=== PATIENT | male | born 1945 | race Caucasian/White ===

== ENCOUNTER 2021-03-09 04:29 | Inpatient (IN) | payer MEDICARE, OTHER ==
[~2021-03-09] VITALS: Ht 172.7 cm; Wt 66.0 kg
[2021-03-09 14:01] VITALS: BP 127/76
[2021-03-09] MEDS ORDERED: ACETAMINOPHEN 325 MG TABLET PO PRN (14:30)
[2021-03-09] MEDS ORDERED: METHYL SALICYLATE/MENTHOL TOPICAL OINTMENT 57GM TUBE. TP PRN (14:30)
[2021-03-09] MEDS ORDERED: MAG HYDROX/AL HYDROX/SIMETH 30 ML ORAL.SUSP PO PRN (14:30)
[2021-03-09] MEDS ORDERED: MAGNESIUM HYDROXIDE 2,400 MG/30 ML ORAL.SUSP. PO PRN (14:30)
[2021-03-09] MEDS ORDERED: LANS15CA78 PO (14:54)
[2021-03-09] MEDS ORDERED: FOLI0.8T5 PO (14:54)
[2021-03-09] MEDS ORDERED: BACI1PAC4 TP (14:54)
[2021-03-09] MEDS ORDERED: OLAN5TAB7 PO (14:54)
[2021-03-09] MEDS ORDERED: CALC500T31 PO (14:54)
[2021-03-09] MEDS ORDERED: M-171CAP PO (14:54)
[2021-03-09] MEDS ORDERED: FERR325T14 PO (14:54)
[2021-03-09] MEDS ORDERED: RISP1TAB88 PO (14:54)
[2021-03-09] MEDS ORDERED: ESCITALOPRAM OXA5 MG PO (14:54)
[2021-03-09] MEDS ORDERED: SENN1TAB99 PO (14:54)
[2021-03-09] MEDS ORDERED: THIA100T57 PO (14:54)
[2021-03-09 15:33] LABS: BASO # 0.1 x10^3/uL (0.0-0.2); BASO % 1 % (0-3); EOS # 0.1 x10^3/uL (0.0-0.7); EOS % 1 % (0-3); HEMATOCRIT 37.2 % (39.0-53.0); HEMOGLOBIN 11.4 g/dL (13.0-17.5); LYMPH # 1.1 x10^3/uL (1.0-4.8); LYMPH % 13 % (24-48); MEAN CORPUSCULAR HEMOGLOBIN 24 pg (25-35); MEAN CORPUSCULAR HGB CONC 31 g/dL (31-37); MEAN CORPUSCULAR VOLUME 77 fL (79-100); MONO # 0.5 x10^3/uL (0.0-1.1); MONO % 6 % (0-9); NEUT # 7.1 x10^3uL (1.8-7.7); NEUT % 79 % (31-73); PLATELET COUNT 377 x10^3/uL (140-400); RED BLOOD COUNT 4.82 x10^6/uL (4.30-5.70); RED CELL DISTRIBUTION WIDTH 34.3 % (11.5-14.5)
[2021-03-09 15:51] LABS: % LYMPHS 19 % (24-48); % MONOS 4 % (0-10); % SEGS 77 % (35-66); ANISOCYTOSIS MARKED; MICROCYTOSIS SLIGHT; PLT ESTIMATE ADEQUATE (ADEQUATE)
[2021-03-09 15:52] LABS: ALBUMIN 3.4 g/dL (3.4-5.0); ALBUMIN/GLOBULIN RATIO 0.8 (1.0-1.7); CALCIUM 9.5 mg/dL (8.5-10.1); CREATININE 1.1 mg/dL (0.7-1.3); TOTAL PROTEIN 7.5 g/dL (6.4-8.2)
[2021-03-09 15:53] VITALS: BP 130/86
[2021-03-09 15:53] LABS: GFR 64.9; MAGNESIUM 2.3 mg/dL (1.8-2.4); POTASSIUM 4.2 mmol/L (3.5-5.1); TOTAL BILIRUBIN 0.2 mg/dL (0.2-1.0)
--- NOTE | 2021-03-09 17:58 | EKG ---
[address] [address] Test Date: 2021-03-09 Test Time: 17:53:54 Pat Name: KAVITA ROCHA Department: Room: [address] [place] [address] Gender: M [employer]er [employer]: : 1945 Requested By: DENZEL ZAYAS Order Number: [id number] Reading MD: Measurements Intervals [place] Rate: 85 P: 62 DC: 138 QRS: -26 QRSD: 90 T: 64 QT: 368 QTc: 438 Interpretive Statements SINUS RHYTHM ATRIAL PREMATURE COMPLEX(ES) LEFTWARD AXIS R-S TRANSITION ZONE IN V LEADS DISPLACED TO THE RIGHT QRS(T) CONTOUR ABNORMALITY CONSIDER ANTEROLATERAL MYOCARDIAL DAMAGE POSSIBLY ABNORMAL ECG RI6.01 No previous ECG available for comparison
[2021-03-09] MEDS ORDERED: NETTLE PO SCH (21:00)
[2021-03-09] MEDS ORDERED: risperiDONE 1 MG TABLET. PO SCH (21:00)
[2021-03-09] MEDS ORDERED: [UNRECOGNIZED DRUG - OTHER] PO SCH (21:00)
[2021-03-09] MEDS: CALCIUM CARBONATE 500 MG TABLET PO SCH (21:31)
[2021-03-09] MEDS: BACITRACIN ZINC TOPICAL OINT PACKET. TP SCH (21:32)
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
[2021-03-10 05:53] VITALS: BP 123/74
[2021-03-10] MEDS: PANTOPRAZOLE 40 MG TABLET. PO SCH (06:13)
[2021-03-10] MEDS ORDERED: CITALOPRAM 10 MG TABLET. PO SCH (09:00)
[2021-03-10] MEDS: BACITRACIN ZINC TOPICAL OINT PACKET. TP SCH ×2 (09:00→21:18)
[2021-03-10] MEDS: FOLIC ACID 1 MG TABLET PO SCH (09:03)
[2021-03-10] MEDS: THIAMINE 100 MG TABLET. PO SCH (09:03)
[2021-03-10] MEDS: FERROUS SULFATE 325 MG TABLET. PO SCH (09:04)
[2021-03-10] MEDS: NICOTINE 21MG PATCH. TD SCH (09:04)
[2021-03-10] MEDS: SENNOSIDES/DOCUSATE 8.6/50MG TABLET. PO SCH (09:04)
[2021-03-10] MEDS: CALCIUM CARBONATE 500 MG TABLET PO SCH ×2 (09:04→21:15)
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
[2021-03-10 14:15] LABS: THYROXINE 6.4 ug/dL (4.5-12.0)
[2021-03-10 16:36] VITALS: BP 128/74
[2021-03-10 18:37] LABS: THYROID STIM HORMONE (TSH) 3.416 uIU/mL (0.358-3.740)
[2021-03-10] MEDS: risperiDONE 0.5 MG TABLET. PO SCH (21:18)
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
--- NOTE | 2021-03-10 22:04 | PDOC ---
Exam Note: Roni Note: Please also refer to the separate dictated note~for this date of service dictated separately.~Patient seen individually. Discussed the patient with Nursing staff reviewed the chart.~Reviewed interim history and current functioning. Reviewed vital signs,~Labs/ Radiology~and current medications noted below. Continue current treatment with the changes noted in the dictated addendum note Assessment: Vital Signs/I&O: Vital Signs Date Time Temp Pulse Resp B/P (MAP) Pulse Ox O2 Delivery O2 Flow Rate FiO2 03/10/21 16:36 97.8 95 18 128/74 (92) 98 Room Air I & O 03/09/21 03/09/21 03/10/21 15:00 23:00 07:00 Intake Total 600 ml Balance 600 ml Labs: Laboratory Tests Test 03/10/21 06:10 D-Dimer (Emma) 1.38 mg/L (0.00-0.50) H Vitamin B12 Level 435 pg/mL (247-911) 25-Hydroxy Vitamin D Total 42.6 ng/mL (30-100) Thyroxine (T4) 6.4 ug/dL (4.5-12.0) Total Triiodothyronine (TT3) 109 ng/dL (71-180) Treponema pallidum Antibody Nonreactive (Nonreactive) Current Medications: Meds: Current Medications Medications (Trade) Dose Ordered Sig/Nela Route PRN Reason Start Time Stop Time Status Last Admin Dose Admin Nicotine (Nicoderm Cq 21mg Patch) 1 patch DAILY TD 03/10/21 09:00 03/10/21 09:04 Ferrous Sulfate (Feosol) 325 mg DAILY PO 03/10/21 09:00 03/10/21 09:04 Senna/Docusate Sodium (Senna Plus) 2 tab DAILY PO 03/10/21 09:00 03/10/21 09:04 Citalopram Hydrobromide (CeleXA) 10 mg DAILY PO 03/10/21 09:00 03/10/21 16:19 DC 03/10/21 09:04 Folic Acid (Folic Acid) 1 mg DAILY PO 03/10/21 09:00 03/10/21 09:03 Pantoprazole Sodium (Protonix) 40 mg DAILY06 PO 03/10/21 06:00 03/10/21 06:13 Thiamine HCl (Vitamin B-1) 100 mg DAILY PO 03/10/21 09:00 03/10/21 09:03 Risperidone (RisperDAL) 0.5 mg QHS PO 03/10/21 21:00 03/10/21 21:18 I have reviewed the current psychotropics carefully including drug interactions. Risk benefit ratio favors no change other than as noted in my dictated progress note. Diagnosis: Problems: (1) Major neurocognitive disorder (2) Dementia in Alzheimer's disease with delusions (3) Dementia in Alzheimer's disease with depression (4) Dementia of the Alzheimer's type with early onset with behavioral disturbance (5) Dementia, vascular, with delusions (6) Dementia, vascular, with depression (7) Anxiety disorder, unspecified (8) Impulse control disorder, unspecified DENZEL ZAYAS MD Mar 10, 2021 22:04
[2021-03-10 23:07] LABS: HEMOGLOBIN A1C 5.5 % (4.8-5.6)
[2021-03-11] MEDS: PANTOPRAZOLE 40 MG TABLET. PO SCH (05:59)
[2021-03-11 06:12] VITALS: BP 128/77
[2021-03-11 06:57] LABS: BILIRUBIN,URINE NEG (NEG); CLARITY,URINE CLEAR; COLOR,URINE STRAW; GLUCOSE,URINE NEG (NEG); NITRITE,URINE NEG (NEG); UROBILINOGEN,URINE 0.2 mg/dL (0.2 mg/dL)
[2021-03-11 07:00] LABS: BACTERIA,URINE FEW /HPF (0-FEW); RBC,URINE 0 /HPF (0-2); SQUAMOUS EPITHELIAL CELL,UR FEW /LPF; WBC,URINE 0 /HPF (0-4)
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
--- NOTE | 2021-03-11 07:42 | PDOC ---
Exam Note: Roni Note: This is a late entry for DOS 03/09/2021. Please also refer to the separate dictated note~for this date of service dictated separately.~Patient seen individually. Discussed the patient with Nursing staff reviewed the chart.~Reviewed interim history and current functioning. Reviewed vital signs,~Labs/ Radiology~and current medications noted below. Continue current treatment with the changes noted in the dictated addendum note Assessment: Vital Signs/I&O: Vital Signs Date Time Temp Pulse Resp B/P (MAP) Pulse Ox O2 Delivery O2 Flow Rate FiO2 03/11/21 06:12 96.4 71 17 128/77 (94) 95 Room Air I & O 03/10/21 03/10/21 03/11/21 15:00 23:00 07:00 Intake Total 360 ml 960 ml Balance 360 ml 960 ml Labs: Laboratory Tests Test 03/11/21 06:00 Urine Collection Type Unknown Urine Color Straw Urine Clarity Clear Urine pH 7.0 Urine Specific [place] 1.020 Urine Protein Neg (NEG-TRACE) Urine Glucose (UA) Neg mg/dL (NEG) Urine Ketones (Stick) Neg mg/dL (NEG) Urine Blood Neg (NEG) Urine Nitrite Neg (NEG) Urine Bilirubin Neg (NEG) Urine Urobilinogen Dipstick 0.2 mg/dL (0.2 mg/dL) Urine Leukocyte Esterase Neg (NEG) Urine RBC 0 /HPF (0-2) Urine WBC 0 /HPF (0-4) Urine Squamous Epithelial Cells Few /LPF Urine Transitional Epithelial Cells Few /LPF Urine Renal Epithelial Cells Few /LPF Urine Bacteria Few /HPF (0-FEW) Urine Mucus Slight /LPF Current Medications: Meds: Current Medications Medications (Trade) Dose Ordered Sig/Nela Route PRN Reason Start Time Stop Time Status Last Admin Dose Admin Nicotine (Nicoderm Cq 21mg Patch) 1 patch DAILY TD 03/10/21 09:00 03/10/21 09:04 Ferrous Sulfate (Feosol) 325 mg DAILY PO 03/10/21 09:00 03/10/21 09:04 Senna/Docusate Sodium (Senna Plus) 2 tab DAILY PO 03/10/21 09:00 03/10/21 09:04 Citalopram Hydrobromide (CeleXA) 10 mg DAILY PO 03/10/21 09:00 03/10/21 16:19 DC 03/10/21 09:04 Folic Acid (Folic Acid) 1 mg DAILY PO 03/10/21 09:00 03/10/21 09:03 Thiamine HCl (Vitamin B-1) 100 mg DAILY PO 03/10/21 09:00 03/10/21 09:03 Risperidone (RisperDAL) 0.5 mg QHS PO 03/10/21 21:00 03/10/21 21:18 I have reviewed the current psychotropics carefully including drug interactions. Risk benefit ratio favors no change other than as noted in my dictated progress note. Diagnosis: Problems: (1) Impulse control disorder, unspecified (2) Anxiety disorder, unspecified (3) Dementia, vascular, with depression (4) Dementia, vascular, with delusions (5) Dementia in Alzheimer's disease with depression (6) Dementia in Alzheimer's disease with delusions (7) Dementia of the Alzheimer's type with early onset with behavioral disturbance (8) Major neurocognitive disorder DENZEL ZAYAS MD Mar 11, 2021 07:42
[2021-03-11] MEDS: THIAMINE 100 MG TABLET. PO SCH (08:17)
[2021-03-11] MEDS: SENNOSIDES/DOCUSATE 8.6/50MG TABLET. PO SCH (08:17)
[2021-03-11] MEDS: FOLIC ACID 1 MG TABLET PO SCH (08:17)
[2021-03-11] MEDS: DIVALPROEX 125 MG CAP.SPRINK PO SCH ×2 (08:17→17:22)
[2021-03-11] MEDS: CITALOPRAM 20 MG TABLET. PO SCH (08:17)
[2021-03-11] MEDS: CALCIUM CARBONATE 500 MG TABLET PO SCH ×2 (08:18→20:52)
[2021-03-11] MEDS: BACITRACIN ZINC TOPICAL OINT PACKET. TP SCH ×2 (08:18→20:48)
[2021-03-11] MEDS: NICOTINE 21MG PATCH. TD SCH (08:18)
[2021-03-11] MEDS: FERROUS SULFATE 325 MG TABLET. PO SCH (08:18)
[2021-03-11 16:22] VITALS: BP 107/56
[2021-03-11] MEDS: risperiDONE 0.5 MG TABLET. PO SCH (20:52)
--- NOTE | 2021-03-11 23:24 | PDOC ---
Exam Note: Roni Note: Please also refer to the separate dictated note~for this date of service dictated separately.~Patient seen individually. Discussed the patient with Nursing staff reviewed the chart.~Reviewed interim history and current functioning. Reviewed vital signs,~Labs/ Radiology~and current medications noted below. Continue current treatment with the changes noted in the dictated addendum note Assessment: Vital Signs/I&O: Vital Signs Date Time Temp Pulse Resp B/P (MAP) Pulse Ox O2 Delivery O2 Flow Rate FiO2 03/11/21 16:22 97.8 76 16 107/56 (73) 94 03/11/21 06:12 Room Air I & O 03/10/21 03/10/21 03/11/21 15:00 23:00 07:00 Intake Total 360 ml 960 ml Balance 360 ml 960 ml Labs: Laboratory Tests Test 03/11/21 06:00 Urine Collection Type Unknown Urine Color Straw Urine Clarity Clear Urine pH 7.0 Urine Specific [place] 1.020 Urine Protein Neg (NEG-TRACE) Urine Glucose (UA) Neg mg/dL (NEG) Urine Ketones (Stick) Neg mg/dL (NEG) Urine Blood Neg (NEG) Urine Nitrite Neg (NEG) Urine Bilirubin Neg (NEG) Urine Urobilinogen Dipstick 0.2 mg/dL (0.2 mg/dL) Urine Leukocyte Esterase Neg (NEG) Urine RBC 0 /HPF (0-2) Urine WBC 0 /HPF (0-4) Urine Squamous Epithelial Cells Few /LPF Urine Transitional Epithelial Cells Few /LPF Urine Renal Epithelial Cells Few /LPF Urine Bacteria Few /HPF (0-FEW) Urine Mucus Slight /LPF Current Medications: Meds: Laboratory Tests Test 03/11/21 06:00 Urine Collection Type Unknown Urine Color Straw Urine Clarity Clear Urine pH 7.0 Urine Specific [place] 1.020 Urine Protein Neg Urine Glucose (UA) Neg mg/dL Urine Ketones (Stick) Neg mg/dL Urine Blood Neg Urine Nitrite Neg Urine Bilirubin Neg Urine Urobilinogen Dipstick 0.2 mg/dL Urine Leukocyte Esterase Neg Urine RBC 0 /HPF Urine WBC 0 /HPF Urine Squamous Epithelial Cells Few /LPF Urine Transitional Epithelial Cells Few /LPF Urine Renal Epithelial Cells Few /LPF Urine Bacteria Few /HPF Urine Mucus Slight /LPF Current Medications Medications (Trade) Dose Ordered Sig/Nela Route PRN Reason Start Time Stop Time Status Last Admin Dose Admin Acetaminophen (Tylenol) 650 mg PRN Q6HRS PRN PO MILD PAIN / TEMP > 100.3'F 03/09/21 14:30 Multi-Ingredient Ointment (Analgesic [place]) 1 catracho PRN QID PRN TP MUSCLE PAIN 03/09/21 14:30 Al Hydroxide/Mg Hydroxide (Mylanta Plus Xs) 15 ml PRN AFTMEALHC PRN PO DYSPEPSIA 03/09/21 14:30 Magnesium Hydroxide (Milk Of Magnesia) 2,400 mg PRN QHS PRN PO CONSTIPATION 03/09/21 14:30 Nicotine (Nicoderm Cq 21mg Patch) 1 patch DAILY TD 03/10/21 09:00 03/11/21 08:18 Calcium Carbonate/ Glycine (Oscal) 500 mg BID PO 03/09/21 21:00 03/11/21 20:52 Ferrous Sulfate (Feosol) 325 mg DAILY PO 03/10/21 09:00 03/11/21 08:18 Olanzapine (ZyPREXA ZYDIS) 5 mg PRN BID PRN PO ANXIETY / AGITATION 03/09/21 14:45 03/10/21 18:22 Risperidone (RisperDAL) 1 mg QHS PO 03/09/21 21:00 03/10/21 16:19 DC 03/09/21 21:31 Senna/Docusate Sodium (Senna Plus) 2 tab DAILY PO 03/10/21 09:00 03/11/21 08:17 Bacitracin (Bacitracin Topical Pkt) 1 pkt BID TP 03/09/21 21:00 03/10/21 21:18 Citalopram Hydrobromide (CeleXA) 10 mg DAILY PO 03/10/21 09:00 03/10/21 16:19 DC 03/10/21 09:04 Folic Acid (Folic Acid) 1 mg DAILY PO 03/10/21 09:00 03/11/21 08:17 Pantoprazole Sodium (Protonix) 40 mg DAILY06 PO 03/10/21 06:00 03/11/21 05:59 Non-Formulary Medication (M-17/Nettle/ Pumpk/Saw Palmet (Prostate Therapy Softgel)) 1 each BID PO 03/09/21 21:00 03/09/21 15:03 DC Thiamine HCl (Vitamin B-1) 100 mg DAILY PO 03/10/21 09:00 03/11/21 08:17 Citalopram Hydrobromide (CeleXA) 20 mg DAILY PO 03/11/21 09:00 03/11/21 08:17 Risperidone (RisperDAL) 0.5 mg QHS PO 03/10/21 21:00 03/11/21 20:52 Divalproex Sodium (Depakote Sprinkles) 125 mg 0900,1700 PO 03/11/21 09:00 03/11/21 17:22 Current Medications Medications (Trade) Dose Ordered Sig/Nela Route PRN Reason Start Time Stop Time Status Last Admin Dose Admin Citalopram Hydrobromide (CeleXA) 20 mg DAILY PO 03/11/21 09:00 03/11/21 08:17 Divalproex Sodium (Depakote Sprinkles) 125 mg 0900,1700 PO 03/11/21 09:00 03/11/21 17:22 I have reviewed the current psychotropics carefully including drug interactions. Risk benefit ratio favors no change other than as noted in my dictated progress note. Diagnosis: Problems: (1) Impulse control disorder, unspecified (2) Anxiety disorder, unspecified (3) Dementia, vascular, with depression (4) Dementia, vascular, with delusions (5) Dementia in Alzheimer's disease with depression (6) Dementia in Alzheimer's disease with delusions (7) Dementia of the Alzheimer's type with early onset with behavioral disturbance (8) Major neurocognitive disorder DENZEL ZAYAS MD Mar 11, 2021 23:24
[2021-03-12] MEDS: PANTOPRAZOLE 40 MG TABLET. PO SCH (06:18)
[2021-03-12 06:48] VITALS: BP 112/67
[2021-03-12] MEDS: CITALOPRAM 20 MG TABLET. PO SCH (08:24)
[2021-03-12] MEDS: DIVALPROEX 125 MG CAP.SPRINK PO SCH ×2 (08:24→17:29)
[2021-03-12] MEDS: CALCIUM CARBONATE 500 MG TABLET PO SCH ×2 (08:25→20:13)
[2021-03-12] MEDS: FERROUS SULFATE 325 MG TABLET. PO SCH (08:25)
[2021-03-12] MEDS: THIAMINE 100 MG TABLET. PO SCH (08:25)
[2021-03-12] MEDS: FOLIC ACID 1 MG TABLET PO SCH (08:25)
[2021-03-12] MEDS: SENNOSIDES/DOCUSATE 8.6/50MG TABLET. PO SCH (08:25)
[2021-03-12] MEDS: BACITRACIN ZINC TOPICAL OINT PACKET. TP SCH ×2 (08:26→20:20)
[2021-03-12] MEDS: NICOTINE 21MG PATCH. TD SCH (08:26)
[2021-03-12 15:56] VITALS: BP 119/61
[2021-03-12] MEDS: risperiDONE 0.5 MG TABLET. PO SCH (20:13)
[2021-03-12] MEDS ORDERED: BACITRACIN ZINC TOPICAL OINT PACKET. TP PRN (20:30)
[2021-03-13] MEDS: PANTOPRAZOLE 40 MG TABLET. PO SCH (05:20)
[2021-03-13 06:06] VITALS: BP 130/79
[2021-03-13] MEDS: CALCIUM CARBONATE 500 MG TABLET PO SCH ×2 (09:12→20:05)
[2021-03-13] MEDS: NICOTINE 21MG PATCH. TD SCH (09:12)
[2021-03-13] MEDS: FERROUS SULFATE 325 MG TABLET. PO SCH (09:12)
[2021-03-13] MEDS: DIVALPROEX 125 MG CAP.SPRINK PO SCH ×2 (09:12→17:21)
[2021-03-13] MEDS: FOLIC ACID 1 MG TABLET PO SCH (09:12)
[2021-03-13] MEDS: SENNOSIDES/DOCUSATE 8.6/50MG TABLET. PO SCH (09:12)
[2021-03-13] MEDS: THIAMINE 100 MG TABLET. PO SCH (09:12)
[2021-03-13] MEDS: CITALOPRAM 20 MG TABLET. PO SCH (09:12)
--- NOTE | 2021-03-13 09:28 | PDOC ---
Exam Note: Roni Note: This note is a late entry for 03/11/2021 covers elements not covered in my initial note. Subjective: The patient was seen on telehealth rounds in the evening of 03/11/2021 with the nursing staff taking the telehealth camera to each patient, which was on a secure portal, discussed and reviewed the chart with Grady DUGAN. The patient slept 7 hours previous night. The patient has significant sundowning which was evident last evening. Received Zyprexa at 6.30 p.m. He is exit seeking, agitated, quite significant mood lability was evident. Review of Systems: No CV, , pulmonary, eye system symptoms on review. Mental Status Exam: The patient is awake, alert, oriented. Speech coherent. A bstraction fair. Computation impaired. Language function intact, somewhat suspicious, distractible. Attention span short. Mood and affect withdrawn. No suicidal or homicidal ideation. Laboratory Data: Reviewed. Impression: Major neurocognitive disorder, Alzheimer vascular with depression, delusions, behavioral disturbance. Impulse control disorder. Anxiety disorder unspecified. Plan: Start Depakote Sprinkle 125 mg 9 a.m. and 5 p.m. Check CBC, CMP, valproic acid level in 3 days. Rest unchanged. Assessment: Vital Signs/I&O: Vital Signs Date Time Temp Pulse Resp B/P (MAP) Pulse Ox O2 Delivery O2 Flow Rate FiO2 03/13/21 06:06 98.3 68 16 130/79 (96) 96 03/12/21 15:56 Room Air I & O 03/12/21 03/12/21 03/13/21 15:00 23:00 07:00 Intake Total 720 ml 340 ml Balance 720 ml 340 ml Current Medications: Meds: Current Medications Medications (Trade) Dose Ordered Sig/Nela Route PRN Reason Start Time Stop Time Status Last Admin Dose Admin Acetaminophen (Tylenol) 650 mg PRN Q6HRS PRN PO MILD PAIN / TEMP > 100.3'F 03/09/21 14:30 03/12/21 08:25 Multi-Ingredient Ointment (Analgesic [place]) 1 catracho PRN QID PRN TP MUSCLE PAIN 03/09/21 14:30 Al Hydroxide/Mg Hydroxide (Mylanta Plus Xs) 15 ml PRN AFTMEALHC PRN PO DYSPEPSIA 03/09/21 14:30 Magnesium Hydroxide (Milk Of Magnesia) 2,400 mg PRN QHS PRN PO CONSTIPATION 03/09/21 14:30 Nicotine (Nicoderm Cq 21mg Patch) 1 patch DAILY TD 03/10/21 09:00 03/13/21 09:12 Calcium Carbonate/ Glycine (Oscal) 500 mg BID PO 03/09/21 21:00 03/13/21 09:12 Ferrous Sulfate (Feosol) 325 mg DAILY PO 03/10/21 09:00 03/13/21 09:12 Olanzapine (ZyPREXA ZYDIS) 5 mg PRN BID PRN PO ANXIETY / AGITATION 03/09/21 14:45 03/12/21 08:25 Risperidone (RisperDAL) 1 mg QHS PO 03/09/21 21:00 03/10/21 16:19 DC 03/09/21 21:31 Senna/Docusate Sodium (Senna Plus) 2 tab DAILY PO 03/10/21 09:00 03/13/21 09:12 Bacitracin (Bacitracin Topical Pkt) 1 pkt BID TP 03/09/21 21:00 03/12/21 20:20 DC 03/12/21 08:26 Citalopram Hydrobromide (CeleXA) 10 mg DAILY PO 03/10/21 09:00 03/10/21 16:19 DC 03/10/21 09:04 Folic Acid (Folic Acid) 1 mg DAILY PO 03/10/21 09:00 03/13/21 09:12 Pantoprazole Sodium (Protonix) 40 mg DAILY06 PO 03/10/21 06:00 03/13/21 05:20 Non-Formulary Medication (M-17/Nettle/ Pumpk/Saw [place] (Prostate Therapy Softgel)) 1 each BID PO 03/09/21 21:00 03/09/21 15:03 DC Thiamine HCl (Vitamin B-1) 100 mg DAILY PO 03/10/21 09:00 03/13/21 09:12 Citalopram Hydrobromide (CeleXA) 20 mg DAILY PO 03/11/21 09:00 03/13/21 09:12 Risperidone (RisperDAL) 0.5 mg QHS PO 03/10/21 21:00 03/12/21 20:13 Divalproex Sodium (Depakote Sprinkles) 125 mg 0900,1700 PO 03/11/21 09:00 03/13/21 09:12 Bacitracin (Bacitracin Topical Pkt) 1 pkt PRN BID PRN TP RASH 03/12/21 20:30 I have reviewed the current psychotropics carefully including drug interactions. Risk benefit ratio favors no change other than as noted in my dictated progress note. Diagnosis: Problems: (1) Impulse control disorder, unspecified (2) Anxiety disorder, unspecified (3) Dementia, vascular, with depression (4) Dementia, vascular, with delusions (5) Dementia in Alzheimer's disease with depression (6) Dementia in Alzheimer's disease with delusions (7) Dementia of the Alzheimer's type with early onset with behavioral disturbance (8) Major neurocognitive disorder DENZEL ZAYAS MD Mar 13, 2021 09:28
[2021-03-13 15:46] VITALS: BP 112/67
[2021-03-13] MEDS: risperiDONE 0.5 MG TABLET. PO SCH (20:05)
--- NOTE | 2021-03-13 22:15 | PDOC ---
Exam Note: Roni Note: Please also refer to the separate dictated note~for this date of service dictated separately.~Patient seen individually. Discussed the patient with Nursing staff reviewed the chart.~Reviewed interim history and current functioning. Reviewed vital signs,~Labs/ Radiology~and current medications noted below. Continue current treatment with the changes noted in the dictated addendum note Assessment: Vital Signs/I&O: Vital Signs Date Time Temp Pulse Resp B/P (MAP) Pulse Ox O2 Delivery O2 Flow Rate FiO2 03/13/21 15:46 97.4 80 16 112/67 (82) 97 03/12/21 15:56 Room Air I & O 03/12/21 03/12/21 03/13/21 15:00 23:00 07:00 Intake Total 720 ml 340 ml Balance 720 ml 340 ml Current Medications: Meds: Current Medications Medications (Trade) Dose Ordered Sig/Nela Route PRN Reason Start Time Stop Time Status Last Admin Dose Admin Acetaminophen (Tylenol) 650 mg PRN Q6HRS PRN PO MILD PAIN / TEMP > 100.3'F 03/09/21 14:30 03/12/21 08:25 Multi-Ingredient Ointment (Analgesic [place]) 1 catracho PRN QID PRN TP MUSCLE PAIN 03/09/21 14:30 Al Hydroxide/Mg Hydroxide (Mylanta Plus Xs) 15 ml PRN AFTMEALHC PRN PO DYSPEPSIA 03/09/21 14:30 Magnesium Hydroxide (Milk Of Magnesia) 2,400 mg PRN QHS PRN PO CONSTIPATION 03/09/21 14:30 Nicotine (Nicoderm Cq 21mg Patch) 1 patch DAILY TD 03/10/21 09:00 03/13/21 09:12 Calcium Carbonate/ Glycine (Oscal) 500 mg BID PO 03/09/21 21:00 03/13/21 20:05 Ferrous Sulfate (Feosol) 325 mg DAILY PO 03/10/21 09:00 03/13/21 09:12 Olanzapine (ZyPREXA ZYDIS) 5 mg PRN BID PRN PO ANXIETY / AGITATION 03/09/21 14:45 03/12/21 08:25 Risperidone (RisperDAL) 1 mg QHS PO 03/09/21 21:00 03/10/21 16:19 DC 03/09/21 21:31 Senna/Docusate Sodium (Senna Plus) 2 tab DAILY PO 03/10/21 09:00 03/13/21 09:12 Bacitracin (Bacitracin Topical Pkt) 1 pkt BID TP 03/09/21 21:00 03/12/21 20:20 DC 03/12/21 08:26 Citalopram Hydrobromide (CeleXA) 10 mg DAILY PO 03/10/21 09:00 03/10/21 16:19 DC 03/10/21 09:04 Folic Acid (Folic Acid) 1 mg DAILY PO 03/10/21 09:00 03/13/21 09:12 Pantoprazole Sodium (Protonix) 40 mg DAILY06 PO 03/10/21 06:00 03/13/21 05:20 Non-Formulary Medication (M-17/Nettle/ Pumpk/Saw [place] (Prostate Therapy Softgel)) 1 each BID PO 03/09/21 21:00 03/09/21 15:03 DC Thiamine HCl (Vitamin B-1) 100 mg DAILY PO 03/10/21 09:00 03/13/21 09:12 Citalopram Hydrobromide (CeleXA) 20 mg DAILY PO 03/11/21 09:00 03/13/21 14:30 DC 03/13/21 09:12 Risperidone (RisperDAL) 0.5 mg QHS PO 03/10/21 21:00 03/13/21 20:05 Divalproex Sodium (Depakote Sprinkles) 125 mg 0900,1700 PO 03/11/21 09:00 03/13/21 17:21 Bacitracin (Bacitracin Topical Pkt) 1 pkt PRN BID PRN TP RASH 03/12/21 20:30 Sertraline HCl (Zoloft) 50 mg DAILY PO 03/14/21 09:00 I have reviewed the current psychotropics carefully including drug interactions. Risk benefit ratio favors no change other than as noted in my dictated progress note. Diagnosis: Problems: (1) Impulse control disorder, unspecified (2) Anxiety disorder, unspecified (3) Dementia, vascular, with depression (4) Dementia, vascular, with delusions (5) Dementia in Alzheimer's disease with depression (6) Dementia in Alzheimer's disease with delusions (7) Dementia of the Alzheimer's type with early onset with behavioral disturbance (8) Major neurocognitive disorder DENZEL ZAYAS MD Mar 13, 2021 22:15
[2021-03-14 05:44] VITALS: BP 119/65
[2021-03-14] MEDS: PANTOPRAZOLE 40 MG TABLET. PO SCH (05:59)
[2021-03-14 06:28] LABS: BASO # 0.1 x10^3/uL (0.0-0.2); BASO % 1 % (0-3); EOS # 0.2 x10^3/uL (0.0-0.7); EOS % 3 % (0-3); HEMOGLOBIN 10.5 g/dL (13.0-17.5); LYMPH # 1.4 x10^3/uL (1.0-4.8); LYMPH % 19 % (24-48); MEAN CORPUSCULAR HEMOGLOBIN 24 pg (25-35); MEAN CORPUSCULAR HGB CONC 31 g/dL (31-37); MEAN CORPUSCULAR VOLUME 78 fL (79-100); MONO # 0.6 x10^3/uL (0.0-1.1); MONO % 8 % (0-9); NEUT # 5.2 x10^3uL (1.8-7.7); NEUT % 69 % (31-73); PLATELET COUNT 358 x10^3/uL (140-400); RED BLOOD COUNT 4.38 x10^6/uL (4.30-5.70); WHITE BLOOD COUNT 7.6 x10^3/uL (4.0-11.0)
[2021-03-14 06:40] LABS: ALBUMIN 3.2 g/dL (3.4-5.0); ALBUMIN/GLOBULIN RATIO 0.9 (1.0-1.7); ALK PHOS 108 U/L (46-116); ALT (SGPT) 18 U/L (16-63); ANION GAP 5 (6-14); AST (SGOT) 14 U/L (15-37); BLOOD UREA NITROGEN 23 mg/dL (8-26); BUN/CREATININE RATIO 26 (6-20); CALCIUM 9.3 mg/dL (8.5-10.1); CARBON DIOXIDE 33 mmol/L (21-32); CHLORIDE 108 mmol/L (98-107); CREATININE 0.9 mg/dL (0.7-1.3); GFR 81.8; GLUCOSE 114 mg/dL (70-99); POTASSIUM 4.5 mmol/L (3.5-5.1); SODIUM 146 mmol/L (136-145); TOTAL BILIRUBIN 0.2 mg/dL (0.2-1.0); TOTAL PROTEIN 6.8 g/dL (6.4-8.2)
[2021-03-14 06:47] LABS: VAL ACID 16 mcg/mL (50-100)
[2021-03-14] MEDS: THIAMINE 100 MG TABLET. PO SCH (09:15)
[2021-03-14] MEDS: CALCIUM CARBONATE 500 MG TABLET PO SCH ×2 (09:15→20:03)
[2021-03-14] MEDS: FERROUS SULFATE 325 MG TABLET. PO SCH (09:15)
[2021-03-14] MEDS: NICOTINE 21MG PATCH. TD SCH (09:15)
[2021-03-14] MEDS: SENNOSIDES/DOCUSATE 8.6/50MG TABLET. PO SCH (09:15)
[2021-03-14] MEDS: SERTRALINE 50 MG TABLET. PO SCH (09:15)
[2021-03-14] MEDS: DIVALPROEX 125 MG CAP.SPRINK PO SCH ×2 (09:15→17:23)
[2021-03-14] MEDS: FOLIC ACID 1 MG TABLET PO SCH (09:15)
--- NOTE | 2021-03-14 09:51 | PDOC ---
Exam Note: Roni Note: This note is a late entry for 03/12/2021 covers elements not covered in my initial note. Subjective: The patient was seen on telehealth rounds in the afternoon of 03/12/2021 with the nursing staff taking the telehealth camera to each patient, which was on a secure portal, discussed and reviewed the chart with Erasmo DUGAN. The patient slept 6 hours previous night. The patient is somewhat confused but has done better. Review of Systems: No CV, , pulmonary, eye, ENT system symptoms on review. Reliability varies. Mental Status Exam: The patient is oriented to himself. Speech has some latency, coherent. Abstraction fair. Computation impaired. Insight, judgment, recent memory is impaired. Language function intact. Attention span short. Mood and affect dysphoric but he denies this on direct questioning. When I asked him what the year was he said 2044 and felt the President was President Jennifer. He was unable to name the [place] President and the said Jennifer was in residential. He gets more confused in the evening. Laboratory Data: Reviewed. Impression: Major neurocognitive disorder, Alzheimer vascular with depression, delusions, behavioral disturbance. Impulse control disorder. Anxiety disorder unspecified. Plan: Continue current psychotropics, Risperdal 0.5 mg p.o. h.s., Celexa 20 mg a day. We may change to Zoloft and maintain Depakote 125 mg twice a day. Check labs level on 03/14. Adjust thereafter for behavioral dyscontrol. Assessment: Vital Signs/I&O: Vital Signs Date Time Temp Pulse Resp B/P (MAP) Pulse Ox O2 Delivery O2 Flow Rate FiO2 03/14/21 05:44 97.9 66 18 119/65 (83) 92 03/12/21 15:56 Room Air I & O 03/13/21 03/13/21 03/14/21 15:00 23:00 07:00 Intake Total 360 ml 720 ml Balance 360 ml 720 ml Labs: Laboratory Tests Test 03/14/21 06:12 White Blood Count 7.6 x10^3/uL (4.0-11.0) Red Blood Count 4.38 x10^6/uL (4.30-5.70) Hemoglobin 10.5 g/dL (13.0-17.5) L Hematocrit 34.0 % (39.0-53.0) L Mean Corpuscular Volume 78 fL (79-100) L Mean Corpuscular Hemoglobin 24 pg (25-35) L Mean Corpuscular Hemoglobin Concent 31 g/dL (31-37) Red Cell Distribution Width 34.0 % (11.5-14.5) H Platelet Count 358 x10^3/uL (140-400) Neutrophils (%) (Auto) 69 % (31-73) Lymphocytes (%) (Auto) 19 % (24-48) L Monocytes (%) (Auto) 8 % (0-9) Eosinophils (%) (Auto) 3 % (0-3) Basophils (%) (Auto) 1 % (0-3) Neutrophils # (Auto) 5.2 x10^3uL (1.8-7.7) Lymphocytes # (Auto) 1.4 x10^3/uL (1.0-4.8) Monocytes # (Auto) 0.6 x10^3/uL (0.0-1.1) Eosinophils # (Auto) 0.2 x10^3/uL (0.0-0.7) Basophils # (Auto) 0.1 x10^3/uL (0.0-0.2) Sodium Level 146 mmol/L (136-145) H Potassium Level 4.5 mmol/L (3.5-5.1) Chloride Level 108 mmol/L (98-107) H Carbon Dioxide Level 33 mmol/L (21-32) H Anion Gap 5 (6-14) L Blood Urea Nitrogen 23 mg/dL (8-26) Creatinine 0.9 mg/dL (0.7-1.3) Estimated GFR (Cockcroft-Gault) 81.8 BUN/Creatinine Ratio 26 (6-20) H Glucose Level 114 mg/dL (70-99) H Calcium Level 9.3 mg/dL (8.5-10.1) Total Bilirubin 0.2 mg/dL (0.2-1.0) Aspartate Amino Transferase (AST) 14 U/L (15-37) L Alanine Aminotransferase (ALT) 18 U/L (16-63) Alkaline Phosphatase 108 U/L (46-116) Ammonia < 10 mcmol/L (11-34) L Total Protein 6.8 g/dL (6.4-8.2) Albumin 3.2 g/dL (3.4-5.0) L Albumin/Globulin Ratio 0.9 (1.0-1.7) L Valproic Acid Level 16 mcg/mL (50-100) L Valproic Acid Last Dose Date 03/13/21 Valproic Acid Last Dose Time 1700 Current Medications: Meds: Laboratory Tests Test 03/14/21 06:12 White Blood Count 7.6 x10^3/uL Red Blood Count 4.38 x10^6/uL Hemoglobin 10.5 g/dL Hematocrit 34.0 % Mean Corpuscular Volume 78 fL Mean Corpuscular Hemoglobin 24 pg Mean Corpuscular Hemoglobin Concent 31 g/dL Red Cell Distribution Width 34.0 % Platelet Count 358 x10^3/uL Neutrophils (%) (Auto) 69 % Lymphocytes (%) (Auto) 19 % Monocytes (%) (Auto) 8 % Eosinophils (%) (Auto) 3 % Basophils (%) (Auto) 1 % Neutrophils # (Auto) 5.2 x10^3uL Lymphocytes # (Auto) 1.4 x10^3/uL Monocytes # (Auto) 0.6 x10^3/uL Eosinophils # (Auto) 0.2 x10^3/uL Basophils # (Auto) 0.1 x10^3/uL Sodium Level 146 mmol/L Potassium Level 4.5 mmol/L Chloride Level 108 mmol/L Carbon Dioxide Level 33 mmol/L Anion Gap 5 Blood Urea Nitrogen 23 mg/dL Creatinine 0.9 mg/dL Estimated GFR (Cockcroft-Gault) 81.8 BUN/Creatinine Ratio 26 Glucose Level 114 mg/dL Calcium Level 9.3 mg/dL Total Bilirubin 0.2 mg/dL Aspartate Amino Transf (AST/SGOT) 14 U/L Alanine Aminotransferase (ALT/SGPT) 18 U/L Alkaline Phosphatase 108 U/L Ammonia < 10 mcmol/L Total Protein 6.8 g/dL Albumin 3.2 g/dL Albumin/Globulin Ratio 0.9 Valproic Acid (Depakene) Level 16 mcg/mL Valproic Acid Last Dose Date 03/13/21 Valproic Acid Last Dose Time 1700 Current Medications Medications (Trade) Dose Ordered Sig/Nela Route PRN Reason Start Time Stop Time Status Last Admin Dose Admin Acetaminophen (Tylenol) 650 mg PRN Q6HRS PRN PO MILD PAIN / TEMP > 100.3'F 03/09/21 14:30 03/12/21 08:25 Multi-Ingredient Ointment (Analgesic [place]) 1 catracho PRN QID PRN TP MUSCLE PAIN 03/09/21 14:30 Al Hydroxide/Mg Hydroxide (Mylanta Plus Xs) 15 ml PRN AFTMEALHC PRN PO DYSPEPSIA 03/09/21 14:30 Magnesium Hydroxide (Milk Of Magnesia) 2,400 mg PRN QHS PRN PO CONSTIPATION 03/09/21 14:30 Nicotine (Nicoderm Cq 21mg Patch) 1 patch DAILY TD 03/10/21 09:00 03/14/21 09:15 Calcium Carbonate/ Glycine (Oscal) 500 mg BID PO 03/09/21 21:00 03/14/21 09:15 Ferrous Sulfate (Feosol) 325 mg DAILY PO 03/10/21 09:00 03/14/21 09:15 Olanzapine (ZyPREXA ZYDIS) 5 mg PRN BID PRN PO ANXIETY / AGITATION 03/09/21 14:45 03/12/21 08:25 Risperidone (RisperDAL) 1 mg QHS PO 03/09/21 21:00 03/10/21 16:19 DC 03/09/21 21:31 Senna/Docusate Sodium (Senna Plus) 2 tab DAILY PO 03/10/21 09:00 03/14/21 09:15 Bacitracin (Bacitracin Topical Pkt) 1 pkt BID TP 03/09/21 21:00 03/12/21 20:20 DC 03/12/21 08:26 Citalopram Hydrobromide (CeleXA) 10 mg DAILY PO 03/10/21 09:00 03/10/21 16:19 DC 03/10/21 09:04 Folic Acid (Folic Acid) 1 mg DAILY PO 03/10/21 09:00 03/14/21 09:15 Pantoprazole Sodium (Protonix) 40 mg DAILY06 PO 03/10/21 06:00 03/14/21 05:59 Non-Formulary Medication (M-17/Nettle/ Pumpk/Saw [place] (Prostate Therapy Softgel)) 1 each BID PO 03/09/21 21:00 03/09/21 15:03 DC Thiamine HCl (Vitamin B-1) 100 mg DAILY PO 03/10/21 09:00 03/14/21 09:15 Citalopram Hydrobromide (CeleXA) 20 mg DAILY PO 03/11/21 09:00 03/13/21 14:30 DC 03/13/21 09:12 Risperidone (RisperDAL) 0.5 mg QHS PO 03/10/21 21:00 03/13/21 20:05 Divalproex Sodium (Depakote Sprinkles) 125 mg 0900,1700 PO 03/11/21 09:00 03/14/21 09:15 Bacitracin (Bacitracin Topical Pkt) 1 pkt PRN BID PRN TP RASH 03/12/21 20:30 Sertraline HCl (Zoloft) 50 mg DAILY PO 03/14/21 09:00 03/14/21 09:15 Current Medications Medications (Trade) Dose Ordered Sig/Nela Route PRN Reason Start Time Stop Time Status Last Admin Dose Admin Sertraline HCl (Zoloft) 50 mg DAILY PO 03/14/21 09:00 03/14/21 09:15 I have reviewed the current psychotropics carefully including drug interactions. Risk benefit ratio favors no change other than as noted in my dictated progress note. Diagnosis: Problems: (1) Impulse control disorder, unspecified (2) Anxiety disorder, unspecified (3) Dementia, vascular, with depression (4) Dementia, vascular, with delusions (5) Dementia in Alzheimer's disease with depression (6) Dementia in Alzheimer's disease with delusions (7) Dementia of the Alzheimer's type with early onset with behavioral disturbance (8) Major neurocognitive disorder DENZEL ZAYAS MD Mar 14, 2021 09:51
--- NOTE | 2021-03-14 09:56 | PDOC ---
Exam Note: Roni Note: This note is a late entry for 03/13/2021 covers elements not covered in my initial note. Subjective: The patient was seen on telehealth rounds in the afternoon of 03/13/2021 with the nursing staff taking the telehealth camera to each patient, which was on a secure portal, discussed and reviewed the chart with Jonathan DUGAN. The patient slept 8 hours previous night. The patient has been quiet, calm, withdrawn. He was in bed after lunch, somewhat sedated. Review of Systems: Hard of hearing. No CV, , pulmonary, eye system symptoms on review. Reliability varies. Mental Status Exam: The patient is oriented to himself. Patient is quite sedated, sleepy in bed, not very verbally interactive but otherwise per nursing report and observations speech low in rate and rhythm, low in volume. Abstraction fair. Computation impaired. Language function intact. Mood and affect withdrawn. Laboratory Data: Reviewed. Impression: Major neurocognitive disorder, Alzheimer vascular with depression, delusions, behavioral disturbance. Impulse control disorder. Anxiety disorder unspecified. Plan: No change from initial note but we will change the Celexa 20 mg a day to Zoloft 50 mg a day. Adjust further as clinically indicated. Assessment: Vital Signs/I&O: Vital Signs Date Time Temp Pulse Resp B/P (MAP) Pulse Ox O2 Delivery O2 Flow Rate FiO2 03/14/21 05:44 97.9 66 18 119/65 (83) 92 03/12/21 15:56 Room Air I & O 03/13/21 03/13/21 03/14/21 15:00 23:00 07:00 Intake Total 360 ml 720 ml Balance 360 ml 720 ml Labs: Laboratory Tests Test 03/14/21 06:12 White Blood Count 7.6 x10^3/uL (4.0-11.0) Red Blood Count 4.38 x10^6/uL (4.30-5.70) Hemoglobin 10.5 g/dL (13.0-17.5) L Hematocrit 34.0 % (39.0-53.0) L Mean Corpuscular Volume 78 fL (79-100) L Mean Corpuscular Hemoglobin 24 pg (25-35) L Mean Corpuscular Hemoglobin Concent 31 g/dL (31-37) Red Cell Distribution Width 34.0 % (11.5-14.5) H Platelet Count 358 x10^3/uL (140-400) Neutrophils (%) (Auto) 69 % (31-73) Lymphocytes (%) (Auto) 19 % (24-48) L Monocytes (%) (Auto) 8 % (0-9) Eosinophils (%) (Auto) 3 % (0-3) Basophils (%) (Auto) 1 % (0-3) Neutrophils # (Auto) 5.2 x10^3uL (1.8-7.7) Lymphocytes # (Auto) 1.4 x10^3/uL (1.0-4.8) Monocytes # (Auto) 0.6 x10^3/uL (0.0-1.1) Eosinophils # (Auto) 0.2 x10^3/uL (0.0-0.7) Basophils # (Auto) 0.1 x10^3/uL (0.0-0.2) Sodium Level 146 mmol/L (136-145) H Potassium Level 4.5 mmol/L (3.5-5.1) Chloride Level 108 mmol/L (98-107) H Carbon Dioxide Level 33 mmol/L (21-32) H Anion Gap 5 (6-14) L Blood Urea Nitrogen 23 mg/dL (8-26) Creatinine 0.9 mg/dL (0.7-1.3) Estimated GFR (Cockcroft-Gault) 81.8 BUN/Creatinine Ratio 26 (6-20) H Glucose Level 114 mg/dL (70-99) H Calcium Level 9.3 mg/dL (8.5-10.1) Total Bilirubin 0.2 mg/dL (0.2-1.0) Aspartate Amino Transferase (AST) 14 U/L (15-37) L Alanine Aminotransferase (ALT) 18 U/L (16-63) Alkaline Phosphatase 108 U/L (46-116) Ammonia < 10 mcmol/L (11-34) L Total Protein 6.8 g/dL (6.4-8.2) Albumin 3.2 g/dL (3.4-5.0) L Albumin/Globulin Ratio 0.9 (1.0-1.7) L Valproic Acid Level 16 mcg/mL (50-100) L Valproic Acid Last Dose Date 03/13/21 Valproic Acid Last Dose Time 1700 Current Medications: Meds: Laboratory Tests Test 03/14/21 06:12 White Blood Count 7.6 x10^3/uL Red Blood Count 4.38 x10^6/uL Hemoglobin 10.5 g/dL Hematocrit 34.0 % Mean Corpuscular Volume 78 fL Mean Corpuscular Hemoglobin 24 pg Mean Corpuscular Hemoglobin Concent 31 g/dL Red Cell Distribution Width 34.0 % Platelet Count 358 x10^3/uL Neutrophils (%) (Auto) 69 % Lymphocytes (%) (Auto) 19 % Monocytes (%) (Auto) 8 % Eosinophils (%) (Auto) 3 % Basophils (%) (Auto) 1 % Neutrophils # (Auto) 5.2 x10^3uL Lymphocytes # (Auto) 1.4 x10^3/uL Monocytes # (Auto) 0.6 x10^3/uL Eosinophils # (Auto) 0.2 x10^3/uL Basophils # (Auto) 0.1 x10^3/uL Sodium Level 146 mmol/L Potassium Level 4.5 mmol/L Chloride Level 108 mmol/L Carbon Dioxide Level 33 mmol/L Anion Gap 5 Blood Urea Nitrogen 23 mg/dL Creatinine 0.9 mg/dL Estimated GFR (Cockcroft-Gault) 81.8 BUN/Creatinine Ratio 26 Glucose Level 114 mg/dL Calcium Level 9.3 mg/dL Total Bilirubin 0.2 mg/dL Aspartate Amino Transf (AST/SGOT) 14 U/L Alanine Aminotransferase (ALT/SGPT) 18 U/L Alkaline Phosphatase 108 U/L Ammonia < 10 mcmol/L Total Protein 6.8 g/dL Albumin 3.2 g/dL Albumin/Globulin Ratio 0.9 Valproic Acid (Depakene) Level 16 mcg/mL Valproic Acid Last Dose Date 03/13/21 Valproic Acid Last Dose Time 1700 Current Medications Medications (Trade) Dose Ordered Sig/Nela Route PRN Reason Start Time Stop Time Status Last Admin Dose Admin Acetaminophen (Tylenol) 650 mg PRN Q6HRS PRN PO MILD PAIN / TEMP > 100.3'F 03/09/21 14:30 03/12/21 08:25 Multi-Ingredient Ointment (Analgesic [place]) 1 catracho PRN QID PRN TP MUSCLE PAIN 03/09/21 14:30 Al Hydroxide/Mg Hydroxide (Mylanta Plus Xs) 15 ml PRN AFTMEALHC PRN PO DYSPEPSIA 03/09/21 14:30 Magnesium Hydroxide (Milk Of Magnesia) 2,400 mg PRN QHS PRN PO CONSTIPATION 03/09/21 14:30 Nicotine (Nicoderm Cq 21mg Patch) 1 patch DAILY TD 03/10/21 09:00 03/14/21 09:15 Calcium Carbonate/ Glycine (Oscal) 500 mg BID PO 03/09/21 21:00 03/14/21 09:15 Ferrous Sulfate (Feosol) 325 mg DAILY PO 03/10/21 09:00 03/14/21 09:15 Olanzapine (ZyPREXA ZYDIS) 5 mg PRN BID PRN PO ANXIETY / AGITATION 03/09/21 14:45 03/12/21 08:25 Risperidone (RisperDAL) 1 mg QHS PO 03/09/21 21:00 03/10/21 16:19 DC 03/09/21 21:31 Senna/Docusate Sodium (Senna Plus) 2 tab DAILY PO 03/10/21 09:00 03/14/21 09:15 Bacitracin (Bacitracin Topical Pkt) 1 pkt BID TP 03/09/21 21:00 03/12/21 20:20 DC 03/12/21 08:26 Citalopram Hydrobromide (CeleXA) 10 mg DAILY PO 03/10/21 09:00 03/10/21 16:19 DC 03/10/21 09:04 Folic Acid (Folic Acid) 1 mg DAILY PO 03/10/21 09:00 03/14/21 09:15 Pantoprazole Sodium (Protonix) 40 mg DAILY06 PO 03/10/21 06:00 03/14/21 05:59 Non-Formulary Medication (M-17/Nettle/ Pumpk/Saw Palmet (Prostate Therapy Softgel)) 1 each BID PO 03/09/21 21:00 03/09/21 15:03 DC Thiamine HCl (Vitamin B-1) 100 mg DAILY PO 03/10/21 09:00 03/14/21 09:15 Citalopram Hydrobromide (CeleXA) 20 mg DAILY PO 03/11/21 09:00 03/13/21 14:30 DC 03/13/21 09:12 Risperidone (RisperDAL) 0.5 mg QHS PO 03/10/21 21:00 03/13/21 20:05 Divalproex Sodium (Depakote Sprinkles) 125 mg 0900,1700 PO 03/11/21 09:00 03/14/21 09:15 Bacitracin (Bacitracin Topical Pkt) 1 pkt PRN BID PRN TP RASH 03/12/21 20:30 Sertraline HCl (Zoloft) 50 mg DAILY PO 03/14/21 09:00 03/14/21 09:15 Current Medications Medications (Trade) Dose Ordered Sig/Nela Route PRN Reason Start Time Stop Time Status Last Admin Dose Admin Sertraline HCl (Zoloft) 50 mg DAILY PO 03/14/21 09:00 03/14/21 09:15 I have reviewed the current psychotropics carefully including drug interactions. Risk benefit ratio favors no change other than as noted in my dictated progress note. Diagnosis: Problems: (1) Impulse control disorder, unspecified (2) Anxiety disorder, unspecified (3) Dementia, vascular, with depression (4) Dementia, vascular, with delusions (5) Dementia in Alzheimer's disease with depression (6) Dementia in Alzheimer's disease with delusions (7) Dementia of the Alzheimer's type with early onset with behavioral disturbance (8) Major neurocognitive disorder DENZEL ZAYAS MD Mar 14, 2021 09:56
[2021-03-14 15:55] VITALS: BP 138/75
[2021-03-14] MEDS: risperiDONE 0.5 MG TABLET. PO SCH (20:03)
--- NOTE | 2021-03-14 21:59 | PDOC ---
Exam Note: Roni Note: Please also refer to the separate dictated note~for this date of service dictated separately.~Patient seen individually. Discussed the patient with Nursing staff reviewed the chart.~Reviewed interim history and current functioning. Reviewed vital signs,~Labs/ Radiology~and current medications noted below. Continue current treatment with the changes noted in the dictated addendum note Assessment: Vital Signs/I&O: Vital Signs Date Time Temp Pulse Resp B/P (MAP) Pulse Ox O2 Delivery O2 Flow Rate FiO2 03/14/21 15:55 97.1 91 18 138/75 (96) 97 03/12/21 15:56 Room Air I & O 03/13/21 03/13/21 03/14/21 15:00 23:00 07:00 Intake Total 360 ml 720 ml Balance 360 ml 720 ml Labs: Laboratory Tests Test 03/14/21 06:12 White Blood Count 7.6 x10^3/uL (4.0-11.0) Red Blood Count 4.38 x10^6/uL (4.30-5.70) Hemoglobin 10.5 g/dL (13.0-17.5) L Hematocrit 34.0 % (39.0-53.0) L Mean Corpuscular Volume 78 fL (79-100) L Mean Corpuscular Hemoglobin 24 pg (25-35) L Mean Corpuscular Hemoglobin Concent 31 g/dL (31-37) Red Cell Distribution Width 34.0 % (11.5-14.5) H Platelet Count 358 x10^3/uL (140-400) Neutrophils (%) (Auto) 69 % (31-73) Lymphocytes (%) (Auto) 19 % (24-48) L Monocytes (%) (Auto) 8 % (0-9) Eosinophils (%) (Auto) 3 % (0-3) Basophils (%) (Auto) 1 % (0-3) Neutrophils # (Auto) 5.2 x10^3uL (1.8-7.7) Lymphocytes # (Auto) 1.4 x10^3/uL (1.0-4.8) Monocytes # (Auto) 0.6 x10^3/uL (0.0-1.1) Eosinophils # (Auto) 0.2 x10^3/uL (0.0-0.7) Basophils # (Auto) 0.1 x10^3/uL (0.0-0.2) Sodium Level 146 mmol/L (136-145) H Potassium Level 4.5 mmol/L (3.5-5.1) Chloride Level 108 mmol/L (98-107) H Carbon Dioxide Level 33 mmol/L (21-32) H Anion Gap 5 (6-14) L Blood Urea Nitrogen 23 mg/dL (8-26) Creatinine 0.9 mg/dL (0.7-1.3) Estimated GFR (Cockcroft-Gault) 81.8 BUN/Creatinine Ratio 26 (6-20) H Glucose Level 114 mg/dL (70-99) H Calcium Level 9.3 mg/dL (8.5-10.1) Total Bilirubin 0.2 mg/dL (0.2-1.0) Aspartate Amino Transferase (AST) 14 U/L (15-37) L Alanine Aminotransferase (ALT) 18 U/L (16-63) Alkaline Phosphatase 108 U/L (46-116) Ammonia < 10 mcmol/L (11-34) L Total Protein 6.8 g/dL (6.4-8.2) Albumin 3.2 g/dL (3.4-5.0) L Albumin/Globulin Ratio 0.9 (1.0-1.7) L Valproic Acid Level 16 mcg/mL (50-100) L Valproic Acid Last Dose Date 03/13/21 Valproic Acid Last Dose Time 1700 Current Medications: Meds: Laboratory Tests Test 03/14/21 06:12 White Blood Count 7.6 x10^3/uL Red Blood Count 4.38 x10^6/uL Hemoglobin 10.5 g/dL Hematocrit 34.0 % Mean Corpuscular Volume 78 fL Mean Corpuscular Hemoglobin 24 pg Mean Corpuscular Hemoglobin Concent 31 g/dL Red Cell Distribution Width 34.0 % Platelet Count 358 x10^3/uL Neutrophils (%) (Auto) 69 % Lymphocytes (%) (Auto) 19 % Monocytes (%) (Auto) 8 % Eosinophils (%) (Auto) 3 % Basophils (%) (Auto) 1 % Neutrophils # (Auto) 5.2 x10^3uL Lymphocytes # (Auto) 1.4 x10^3/uL Monocytes # (Auto) 0.6 x10^3/uL Eosinophils # (Auto) 0.2 x10^3/uL Basophils # (Auto) 0.1 x10^3/uL Sodium Level 146 mmol/L Potassium Level 4.5 mmol/L Chloride Level 108 mmol/L Carbon Dioxide Level 33 mmol/L Anion Gap 5 Blood Urea Nitrogen 23 mg/dL Creatinine 0.9 mg/dL Estimated GFR (Cockcroft-Gault) 81.8 BUN/Creatinine Ratio 26 Glucose Level 114 mg/dL Calcium Level 9.3 mg/dL Total Bilirubin 0.2 mg/dL Aspartate Amino Transf (AST/SGOT) 14 U/L Alanine Aminotransferase (ALT/SGPT) 18 U/L Alkaline Phosphatase 108 U/L Ammonia < 10 mcmol/L Total Protein 6.8 g/dL Albumin 3.2 g/dL Albumin/Globulin Ratio 0.9 Valproic Acid (Depakene) Level 16 mcg/mL Valproic Acid Last Dose Date 03/13/21 Valproic Acid Last Dose Time 1700 Current Medications Medications (Trade) Dose Ordered Sig/Nela Route PRN Reason Start Time Stop Time Status Last Admin Dose Admin Acetaminophen (Tylenol) 650 mg PRN Q6HRS PRN PO MILD PAIN / TEMP > 100.3'F 03/09/21 14:30 03/12/21 08:25 Multi-Ingredient Ointment (Analgesic [place]) 1 catracho PRN QID PRN TP MUSCLE PAIN 03/09/21 14:30 Al Hydroxide/Mg Hydroxide (Mylanta Plus Xs) 15 ml PRN AFTMEALHC PRN PO DYSPEPSIA 03/09/21 14:30 Magnesium Hydroxide (Milk Of Magnesia) 2,400 mg PRN QHS PRN PO CONSTIPATION 03/09/21 14:30 Nicotine (Nicoderm Cq 21mg Patch) 1 patch DAILY TD 03/10/21 09:00 03/14/21 09:15 Calcium Carbonate/ Glycine (Oscal) 500 mg BID PO 03/09/21 21:00 03/14/21 20:03 Ferrous Sulfate (Feosol) 325 mg DAILY PO 03/10/21 09:00 03/14/21 09:15 Olanzapine (ZyPREXA ZYDIS) 5 mg PRN BID PRN PO ANXIETY / AGITATION 03/09/21 14:45 03/12/21 08:25 Risperidone (RisperDAL) 1 mg QHS PO 03/09/21 21:00 03/10/21 16:19 DC 03/09/21 21:31 Senna/Docusate Sodium (Senna Plus) 2 tab DAILY PO 03/10/21 09:00 03/14/21 09:15 Bacitracin (Bacitracin Topical Pkt) 1 pkt BID TP 03/09/21 21:00 03/12/21 20:20 DC 03/12/21 08:26 Citalopram Hydrobromide (CeleXA) 10 mg DAILY PO 03/10/21 09:00 03/10/21 16:19 DC 03/10/21 09:04 Folic Acid (Folic Acid) 1 mg DAILY PO 03/10/21 09:00 03/14/21 09:15 Pantoprazole Sodium (Protonix) 40 mg DAILY06 PO 03/10/21 06:00 03/14/21 05:59 Non-Formulary Medication (M-17/Nettle/ Pumpk/Saw Palmet (Prostate Therapy Softgel)) 1 each BID PO 03/09/21 21:00 03/09/21 15:03 DC Thiamine HCl (Vitamin B-1) 100 mg DAILY PO 03/10/21 09:00 03/14/21 09:15 Citalopram Hydrobromide (CeleXA) 20 mg DAILY PO 03/11/21 09:00 03/13/21 14:30 DC 03/13/21 09:12 Risperidone (RisperDAL) 0.5 mg QHS PO 03/10/21 21:00 03/14/21 20:03 Divalproex Sodium (Depakote Sprinkles) 125 mg 0900,1700 PO 03/11/21 09:00 03/14/21 17:01 DC 03/14/21 09:15 Bacitracin (Bacitracin Topical Pkt) 1 pkt PRN BID PRN TP RASH 03/12/21 20:30 Sertraline HCl (Zoloft) 50 mg DAILY PO 03/14/21 09:00 03/14/21 09:15 Divalproex Sodium (Depakote Sprinkles) 250 mg 0900,1700 PO 03/14/21 17:00 03/14/21 17:23 Current Medications Medications (Trade) Dose Ordered Sig/Nela Route PRN Reason Start Time Stop Time Status Last Admin Dose Admin Sertraline HCl (Zoloft) 50 mg DAILY PO 03/14/21 09:00 03/14/21 09:15 Divalproex Sodium (Depakote Sprinkles) 250 mg 0900,1700 PO 03/14/21 17:00 03/14/21 17:23 I have reviewed the current psychotropics carefully including drug interactions. Risk benefit ratio favors no change other than as noted in my dictated progress note. Diagnosis: Problems: (1) Impulse control disorder, unspecified (2) Anxiety disorder, unspecified (3) Dementia, vascular, with depression (4) Dementia, vascular, with delusions (5) Dementia in Alzheimer's disease with depression (6) Dementia in Alzheimer's disease with delusions (7) Dementia of the Alzheimer's type with early onset with behavioral disturbance (8) Major neurocognitive disorder DENZEL ZAYAS MD Mar 14, 2021 21:59
[2021-03-15] MEDS: PANTOPRAZOLE 40 MG TABLET. PO SCH (05:00)
[2021-03-15 05:38] VITALS: BP 117/68
[2021-03-15] MEDS: THIAMINE 100 MG TABLET. PO SCH (08:37)
[2021-03-15] MEDS: NICOTINE 21MG PATCH. TD SCH (08:37)
[2021-03-15] MEDS: DIVALPROEX 125 MG CAP.SPRINK PO SCH ×2 (08:37→17:24)
[2021-03-15] MEDS: FOLIC ACID 1 MG TABLET PO SCH (08:37)
[2021-03-15] MEDS: SENNOSIDES/DOCUSATE 8.6/50MG TABLET. PO SCH (08:37)
[2021-03-15] MEDS: SERTRALINE 50 MG TABLET. PO SCH (08:38)
[2021-03-15] MEDS: FERROUS SULFATE 325 MG TABLET. PO SCH (08:38)
[2021-03-15] MEDS: CALCIUM CARBONATE 500 MG TABLET PO SCH ×2 (08:38→20:01)
[2021-03-15 16:06] VITALS: BP 126/67
[2021-03-15] MEDS: risperiDONE 0.5 MG TABLET. PO SCH (20:01)
--- NOTE | 2021-03-15 22:37 | PDOC ---
Exam Note: Roni Note: Please also refer to the separate dictated note~for this date of service dictated separately.~Patient seen individually. Discussed the patient with Nursing staff reviewed the chart.~Reviewed interim history and current functioning. Reviewed vital signs,~Labs/ Radiology~and current medications noted below. Continue current treatment with the changes noted in the dictated addendum note Assessment: Vital Signs/I&O: Vital Signs Date Time Temp Pulse Resp B/P (MAP) Pulse Ox O2 Delivery O2 Flow Rate FiO2 03/15/21 16:06 97.1 75 20 126/67 (86) 97 Room Air I & O 03/14/21 03/14/21 03/15/21 15:00 23:00 07:00 Intake Total 480 ml 600 ml Balance 480 ml 600 ml Current Medications: Meds: Current Medications Medications (Trade) Dose Ordered Sig/Nela Route PRN Reason Start Time Stop Time Status Last Admin Dose Admin Acetaminophen (Tylenol) 650 mg PRN Q6HRS PRN PO MILD PAIN / TEMP > 100.3'F 03/09/21 14:30 03/12/21 08:25 Multi-Ingredient Ointment (Analgesic [place]) 1 catracho PRN QID PRN TP MUSCLE PAIN 03/09/21 14:30 Al Hydroxide/Mg Hydroxide (Mylanta Plus Xs) 15 ml PRN AFTMEALHC PRN PO DYSPEPSIA 03/09/21 14:30 Magnesium Hydroxide (Milk Of Magnesia) 2,400 mg PRN QHS PRN PO CONSTIPATION 03/09/21 14:30 Nicotine (Nicoderm Cq 21mg Patch) 1 patch DAILY TD 03/10/21 09:00 03/15/21 08:37 Calcium Carbonate/ Glycine (Oscal) 500 mg BID PO 03/09/21 21:00 03/15/21 20:01 Ferrous Sulfate (Feosol) 325 mg DAILY PO 03/10/21 09:00 03/15/21 08:38 Olanzapine (ZyPREXA ZYDIS) 5 mg PRN BID PRN PO ANXIETY / AGITATION 03/09/21 14:45 03/12/21 08:25 Risperidone (RisperDAL) 1 mg QHS PO 03/09/21 21:00 03/10/21 16:19 DC 03/09/21 21:31 Senna/Docusate Sodium (Senna Plus) 2 tab DAILY PO 03/10/21 09:00 03/15/21 08:37 Bacitracin (Bacitracin Topical Pkt) 1 pkt BID TP 03/09/21 21:00 03/12/21 20:20 DC 03/12/21 08:26 Citalopram Hydrobromide (CeleXA) 10 mg DAILY PO 03/10/21 09:00 03/10/21 16:19 DC 03/10/21 09:04 Folic Acid (Folic Acid) 1 mg DAILY PO 03/10/21 09:00 03/15/21 08:37 Pantoprazole Sodium (Protonix) 40 mg DAILY06 PO 03/10/21 06:00 03/15/21 05:00 Non-Formulary Medication (M-17/Nettle/ Pumpk/Saw Palmet (Prostate Therapy Softgel)) 1 each BID PO 03/09/21 21:00 03/09/21 15:03 DC Thiamine HCl (Vitamin B-1) 100 mg DAILY PO 03/10/21 09:00 03/15/21 08:37 Citalopram Hydrobromide (CeleXA) 20 mg DAILY PO 03/11/21 09:00 03/13/21 14:30 DC 03/13/21 09:12 Risperidone (RisperDAL) 0.5 mg QHS PO 03/10/21 21:00 03/15/21 20:01 Divalproex Sodium (Depakote Sprinkles) 125 mg 0900,1700 PO 03/11/21 09:00 03/14/21 17:01 DC 03/14/21 09:15 Bacitracin (Bacitracin Topical Pkt) 1 pkt PRN BID PRN TP RASH 03/12/21 20:30 Sertraline HCl (Zoloft) 50 mg DAILY PO 03/14/21 09:00 03/15/21 08:38 Divalproex Sodium (Depakote Sprinkles) 250 mg 0900,1700 PO 03/14/21 17:00 03/15/21 17:24 I have reviewed the current psychotropics carefully including drug interactions. Risk benefit ratio favors no change other than as noted in my dictated progress note. Diagnosis: Problems: (1) Impulse control disorder, unspecified (2) Anxiety disorder, unspecified (3) Dementia, vascular, with depression (4) Dementia, vascular, with delusions (5) Dementia in Alzheimer's disease with depression (6) Dementia in Alzheimer's disease with delusions (7) Dementia of the Alzheimer's type with early onset with behavioral disturbance (8) Major neurocognitive disorder DENZEL ZAYAS MD Mar 15, 2021 22:37
[2021-03-16] MEDS: PANTOPRAZOLE 40 MG TABLET. PO SCH (05:53)
[2021-03-16 06:02] VITALS: BP 147/70
--- NOTE | 2021-03-16 09:05 | PDOC ---
Exam Note: Roni Note: This note is a late entry for 03/14/2021 covers elements not covered in my initial note. Subjective: The patient was seen on telehealth rounds in the afternoon of 03/14/2021 with the nursing staff taking the telehealth camera to each patient, which was on a secure portal, discussed and reviewed the chart with Geetha DUGAN. The patient slept 4-1/2 hours previous night. The patient has been calm, compliant. Valproic acid level is 16 on Depakote Sprinkle 125 mg twice a day. We will increase to 250 mg twice a day. Check CBC, CMP, valproic acid level in 3 days. He is less paranoid, seems to be tolerating Risperdal 0.5 mg h.s., not aggressive or disruptive. Review of Systems: Hard of hearing. No CV, , pulmonary, eye system symptoms on review. Mental Status Exam: The patient is oriented to himself. Patient is quite sedated, sleepy in bed, not very verbally interactive but otherwise per nursing report and observations speech low in rate and rhythm, low in volume. Abstraction fair. Computation impaired. Language function intact. Mood and affect withdrawn. Laboratory Data: Reviewed. Impression: Major neurocognitive disorder, Alzheimer vascular with depression, delusions, behavioral disturbance. Impulse control disorder. Anxiety disorder unspecified. Plan: Valproic acid level is 16 on Depakote Sprinkle 125 mg twice a day. We will increase to 250 mg twice a day. Check CBC, CMP, valproic acid level in 3 days. We may need to increase Zoloft in due course or change to Wellbutrin but we will first adjust the Depakote and then decide. Assessment: Vital Signs/I&O: Vital Signs Date Time Temp Pulse Resp B/P (MAP) Pulse Ox O2 Delivery O2 Flow Rate FiO2 03/16/21 06:02 97.8 74 18 147/70 (95) 97 Room Air I & O 03/15/21 03/15/21 03/16/21 15:00 23:00 07:00 Intake Total 900 ml 600 ml Balance 900 ml 600 ml Current Medications: Meds: Current Medications Medications (Trade) Dose Ordered Sig/Nela Route PRN Reason Start Time Stop Time Status Last Admin Dose Admin Acetaminophen (Tylenol) 650 mg PRN Q6HRS PRN PO MILD PAIN / TEMP > 100.3'F 03/09/21 14:30 03/12/21 08:25 Multi-Ingredient Ointment (Analgesic [place]) 1 catracho PRN QID PRN TP MUSCLE PAIN 03/09/21 14:30 Al Hydroxide/Mg Hydroxide (Mylanta Plus Xs) 15 ml PRN AFTMEALHC PRN PO DYSPEPSIA 03/09/21 14:30 Magnesium Hydroxide (Milk Of Magnesia) 2,400 mg PRN QHS PRN PO CONSTIPATION 03/09/21 14:30 Nicotine (Nicoderm Cq 21mg Patch) 1 patch DAILY TD 03/10/21 09:00 03/15/21 08:37 Calcium Carbonate/ Glycine (Oscal) 500 mg BID PO 03/09/21 21:00 03/15/21 20:01 Ferrous Sulfate (Feosol) 325 mg DAILY PO 03/10/21 09:00 03/15/21 08:38 Olanzapine (ZyPREXA ZYDIS) 5 mg PRN BID PRN PO ANXIETY / AGITATION 03/09/21 14:45 03/12/21 08:25 Risperidone (RisperDAL) 1 mg QHS PO 03/09/21 21:00 03/10/21 16:19 DC 03/09/21 21:31 Senna/Docusate Sodium (Senna Plus) 2 tab DAILY PO 03/10/21 09:00 03/15/21 08:37 Bacitracin (Bacitracin Topical Pkt) 1 pkt BID TP 03/09/21 21:00 03/12/21 20:20 DC 03/12/21 08:26 Citalopram Hydrobromide (CeleXA) 10 mg DAILY PO 03/10/21 09:00 03/10/21 16:19 DC 03/10/21 09:04 Folic Acid (Folic Acid) 1 mg DAILY PO 03/10/21 09:00 03/15/21 08:37 Pantoprazole Sodium (Protonix) 40 mg DAILY06 PO 03/10/21 06:00 03/16/21 05:53 Non-Formulary Medication (M-17/Nettle/ Pumpk/Saw Palmet (Prostate Therapy Softgel)) 1 each BID PO 03/09/21 21:00 03/09/21 15:03 DC Thiamine HCl (Vitamin B-1) 100 mg DAILY PO 03/10/21 09:00 03/15/21 08:37 Citalopram Hydrobromide (CeleXA) 20 mg DAILY PO 03/11/21 09:00 03/13/21 14:30 DC 03/13/21 09:12 Risperidone (RisperDAL) 0.5 mg QHS PO 03/10/21 21:00 03/15/21 20:01 Divalproex Sodium (Depakote Sprinkles) 125 mg 0900,1700 PO 03/11/21 09:00 03/14/21 17:01 DC 03/14/21 09:15 Bacitracin (Bacitracin Topical Pkt) 1 pkt PRN BID PRN TP RASH 03/12/21 20:30 Sertraline HCl (Zoloft) 50 mg DAILY PO 03/14/21 09:00 03/15/21 08:38 Divalproex Sodium (Depakote Sprinkles) 250 mg 0900,1700 PO 03/14/21 17:00 03/15/21 17:24 I have reviewed the current psychotropics carefully including drug interactions. Risk benefit ratio favors no change other than as noted in my dictated progress note. Diagnosis: Problems: (1) Impulse control disorder, unspecified (2) Anxiety disorder, unspecified (3) Dementia, vascular, with depression (4) Dementia, vascular, with delusions (5) Dementia in Alzheimer's disease with depression (6) Dementia in Alzheimer's disease with delusions (7) Dementia of the Alzheimer's type with early onset with behavioral disturbance (8) Major neurocognitive disorder DENZEL ZAYAS MD Mar 16, 2021 09:05
[2021-03-16] MEDS: DIVALPROEX 125 MG CAP.SPRINK PO SCH ×2 (09:12→17:14)
[2021-03-16] MEDS: FOLIC ACID 1 MG TABLET PO SCH (09:12)
[2021-03-16] MEDS: SENNOSIDES/DOCUSATE 8.6/50MG TABLET. PO SCH (09:12)
[2021-03-16] MEDS: FERROUS SULFATE 325 MG TABLET. PO SCH (09:12)
[2021-03-16] MEDS: SERTRALINE 50 MG TABLET. PO SCH (09:13)
[2021-03-16] MEDS: CALCIUM CARBONATE 500 MG TABLET PO SCH ×2 (09:13→20:59)
[2021-03-16] MEDS: NICOTINE 21MG PATCH. TD SCH (09:13)
[2021-03-16] MEDS: THIAMINE 100 MG TABLET. PO SCH (09:13)
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
[2021-03-16 16:17] VITALS: BP 126/70
[2021-03-16] MEDS: risperiDONE 0.5 MG TABLET. PO SCH (20:59)
--- NOTE | 2021-03-16 21:54 | PDOC ---
Exam Note: Roni Note: Please also refer to the separate dictated note~for this date of service dictated separately.~Patient seen individually. Discussed the patient with Nursing staff reviewed the chart.~Reviewed interim history and current functioning. Reviewed vital signs,~Labs/ Radiology~and current medications noted below. Continue current treatment with the changes noted in the dictated addendum note Assessment: Vital Signs/I&O: Vital Signs Date Time Temp Pulse Resp B/P (MAP) Pulse Ox O2 Delivery O2 Flow Rate FiO2 03/16/21 16:17 97.8 90 18 126/70 (88) 97 Room Air I & O 03/15/21 03/15/21 03/16/21 15:00 23:00 07:00 Intake Total 900 ml 600 ml Balance 900 ml 600 ml Current Medications: Meds: Current Medications Medications (Trade) Dose Ordered Sig/Nela Route PRN Reason Start Time Stop Time Status Last Admin Dose Admin Acetaminophen (Tylenol) 650 mg PRN Q6HRS PRN PO MILD PAIN / TEMP > 100.3'F 03/09/21 14:30 03/12/21 08:25 Multi-Ingredient Ointment (Analgesic [place]) 1 catracho PRN QID PRN TP MUSCLE PAIN 03/09/21 14:30 Al Hydroxide/Mg Hydroxide (Mylanta Plus Xs) 15 ml PRN AFTMEALHC PRN PO DYSPEPSIA 03/09/21 14:30 Magnesium Hydroxide (Milk Of Magnesia) 2,400 mg PRN QHS PRN PO CONSTIPATION 03/09/21 14:30 Nicotine (Nicoderm Cq 21mg Patch) 1 patch DAILY TD 03/10/21 09:00 03/16/21 09:13 Calcium Carbonate/ Glycine (Oscal) 500 mg BID PO 03/09/21 21:00 03/16/21 20:59 Ferrous Sulfate (Feosol) 325 mg DAILY PO 03/10/21 09:00 03/16/21 09:12 Olanzapine (ZyPREXA ZYDIS) 5 mg PRN BID PRN PO ANXIETY / AGITATION 03/09/21 14:45 03/12/21 08:25 Risperidone (RisperDAL) 1 mg QHS PO 03/09/21 21:00 03/10/21 16:19 DC 03/09/21 21:31 Senna/Docusate Sodium (Senna Plus) 2 tab DAILY PO 03/10/21 09:00 03/16/21 09:12 Bacitracin (Bacitracin Topical Pkt) 1 pkt BID TP 03/09/21 21:00 03/12/21 20:20 DC 03/12/21 08:26 Citalopram Hydrobromide (CeleXA) 10 mg DAILY PO 03/10/21 09:00 03/10/21 16:19 DC 03/10/21 09:04 Folic Acid (Folic Acid) 1 mg DAILY PO 03/10/21 09:00 03/16/21 09:12 Pantoprazole Sodium (Protonix) 40 mg DAILY06 PO 03/10/21 06:00 03/16/21 05:53 Non-Formulary Medication (M-17/Nettle/ Pumpk/Saw Palmet (Prostate Therapy Softgel)) 1 each BID PO 03/09/21 21:00 03/09/21 15:03 DC Thiamine HCl (Vitamin B-1) 100 mg DAILY PO 03/10/21 09:00 03/16/21 09:13 Citalopram Hydrobromide (CeleXA) 20 mg DAILY PO 03/11/21 09:00 03/13/21 14:30 DC 03/13/21 09:12 Risperidone (RisperDAL) 0.5 mg QHS PO 03/10/21 21:00 03/16/21 20:59 Divalproex Sodium (Depakote Sprinkles) 125 mg 0900,1700 PO 03/11/21 09:00 03/14/21 17:01 DC 03/14/21 09:15 Bacitracin (Bacitracin Topical Pkt) 1 pkt PRN BID PRN TP RASH 03/12/21 20:30 Sertraline HCl (Zoloft) 50 mg DAILY PO 03/14/21 09:00 03/16/21 09:13 Divalproex Sodium (Depakote Sprinkles) 250 mg 0900,1700 PO 03/14/21 17:00 03/16/21 17:14 I have reviewed the current psychotropics carefully including drug interactions. Risk benefit ratio favors no change other than as noted in my dictated progress note. Diagnosis: Problems: (1) Impulse control disorder, unspecified (2) Anxiety disorder, unspecified (3) Dementia, vascular, with depression (4) Dementia, vascular, with delusions (5) Dementia in Alzheimer's disease with depression (6) Dementia in Alzheimer's disease with delusions (7) Dementia of the Alzheimer's type with early onset with behavioral disturbance (8) Major neurocognitive disorder DENZEL ZAYAS MD Mar 16, 2021 21:54
[2021-03-17] MEDS ORDERED: NICO1PAT21 TP (04:13)
[2021-03-17] MEDS ORDERED: SERT50TA PO (04:14)
[2021-03-17] MEDS ORDERED: DIVA250T PO (04:36)
[2021-03-17] MEDS ORDERED: ACET325T21 PO (04:47)
[2021-03-17] MEDS ORDERED: MAG-124 PO (04:48)
[2021-03-17] MEDS ORDERED: MAGN24003 PO (04:48)
[2021-03-17] MEDS ORDERED: RISP0.5T24 PO (04:49)
[2021-03-17] MEDS ORDERED: METH57CR17 TP (04:49)
[2021-03-17 06:02] VITALS: BP 128/65
[2021-03-17 06:04] LABS: BASO # 0.1 x10^3/uL (0.0-0.2); BASO % 1 % (0-3); EOS # 0.2 x10^3/uL (0.0-0.7); EOS % 2 % (0-3); HEMATOCRIT 31.5 % (39.0-53.0); LYMPH # 1.4 x10^3/uL (1.0-4.8); LYMPH % 18 % (24-48); MEAN CORPUSCULAR HEMOGLOBIN 25 pg (25-35); MEAN CORPUSCULAR HGB CONC 32 g/dL (31-37); MEAN CORPUSCULAR VOLUME 78 fL (79-100); MONO # 0.7 x10^3/uL (0.0-1.1); MONO % 9 % (0-9); NEUT # 5.5 x10^3uL (1.8-7.7); NEUT % 70 % (31-73); PLATELET COUNT 331 x10^3/uL (140-400); RED BLOOD COUNT 4.04 x10^6/uL (4.30-5.70); WHITE BLOOD COUNT 7.8 x10^3/uL (4.0-11.0)
[2021-03-17] MEDS: PANTOPRAZOLE 40 MG TABLET. PO SCH (06:09)
[2021-03-17 06:21] LABS: ALBUMIN 2.8 g/dL (3.4-5.0); ALBUMIN/GLOBULIN RATIO 0.8 (1.0-1.7); ALK PHOS 102 U/L (46-116); ALT (SGPT) 16 U/L (16-63); ANION GAP 4 (6-14); AST (SGOT) 14 U/L (15-37); BLOOD UREA NITROGEN 17 mg/dL (8-26); BUN/CREATININE RATIO 19 (6-20); CARBON DIOXIDE 32 mmol/L (21-32); CHLORIDE 106 mmol/L (98-107); CREATININE 0.9 mg/dL (0.7-1.3); GFR 81.8; GLUCOSE 108 mg/dL (70-99); POTASSIUM 4.2 mmol/L (3.5-5.1); SODIUM 142 mmol/L (136-145); TOTAL BILIRUBIN 0.2 mg/dL (0.2-1.0); TOTAL PROTEIN 6.2 g/dL (6.4-8.2)
[2021-03-17 06:30] LABS: VAL ACID 33 mcg/mL (50-100)
[2021-03-17] MEDS: THIAMINE 100 MG TABLET. PO SCH (08:00)
[2021-03-17] MEDS: DIVALPROEX 125 MG CAP.SPRINK PO SCH (08:00)
[2021-03-17] MEDS: SERTRALINE 50 MG TABLET. PO SCH (08:00)
[2021-03-17] MEDS: CALCIUM CARBONATE 500 MG TABLET PO SCH (08:00)
[2021-03-17] MEDS: FOLIC ACID 1 MG TABLET PO SCH (08:00)
[2021-03-17] MEDS: FERROUS SULFATE 325 MG TABLET. PO SCH (08:00)
[2021-03-17] MEDS: NICOTINE 21MG PATCH. TD SCH (08:00)
[2021-03-17] MEDS: SENNOSIDES/DOCUSATE 8.6/50MG TABLET. PO SCH (08:01)
--- NOTE | 2021-03-17 21:54 | PDOC ---
Exam Note: Roni Note: This note is a late entry for 03/15/2021 covers elements not covered in my initial note. Subjective: The patient was seen on telehealth rounds in the afternoon of 03/15/2021 as an option during the COVID-19 pandemic period with Grady DUGAN, discussed and reviewed the chart. The patient slept 7-3/4 hours previous night. The patient has been calmer, did come to the dayroom. Labs are due on 03/17/2021. At times he is somewhat sedated. Short-term memory is impaired but he is not disruptive or aggressive. At times seems clearer. Review of Systems: Hard of hearing. No CV, , pulmonary, eye system symptoms on review. Mental Status Exam: The patient is oriented to himself. Speech low in rate and rhythm, low in volume. Abstraction fair. Computation impaired. Language function intact. Mood and affect withdrawn. Laboratory Data: Reviewed. Impression: Major neurocognitive disorder, Alzheimer vascular with depression, delusions, behavioral disturbance. Impulse control disorder. Anxiety disorder unspecified. Plan: No change from initial note. Assessment: Vital Signs/I&O: Vital Signs Date Time Temp Pulse Resp B/P (MAP) Pulse Ox O2 Delivery O2 Flow Rate FiO2 03/17/21 06:02 98.3 71 20 128/65 (86) 96 03/16/21 16:17 Room Air I & O 03/16/21 03/16/21 03/17/21 15:00 23:00 07:00 Intake Total 480 ml 720 ml Balance 480 ml 720 ml Labs: Laboratory Tests Test 03/17/21 05:38 White Blood Count 7.8 x10^3/uL (4.0-11.0) Red Blood Count 4.04 x10^6/uL (4.30-5.70) L Hemoglobin 10.0 g/dL (13.0-17.5) L Hematocrit 31.5 % (39.0-53.0) L Mean Corpuscular Volume 78 fL (79-100) L Mean Corpuscular Hemoglobin 25 pg (25-35) Mean Corpuscular Hemoglobin Concent 32 g/dL (31-37) Red Cell Distribution Width 34.0 % (11.5-14.5) H Platelet Count 331 x10^3/uL (140-400) Neutrophils (%) (Auto) 70 % (31-73) Lymphocytes (%) (Auto) 18 % (24-48) L Monocytes (%) (Auto) 9 % (0-9) Eosinophils (%) (Auto) 2 % (0-3) Basophils (%) (Auto) 1 % (0-3) Neutrophils # (Auto) 5.5 x10^3uL (1.8-7.7) Lymphocytes # (Auto) 1.4 x10^3/uL (1.0-4.8) Monocytes # (Auto) 0.7 x10^3/uL (0.0-1.1) Eosinophils # (Auto) 0.2 x10^3/uL (0.0-0.7) Basophils # (Auto) 0.1 x10^3/uL (0.0-0.2) Sodium Level 142 mmol/L (136-145) Potassium Level 4.2 mmol/L (3.5-5.1) Chloride Level 106 mmol/L (98-107) Carbon Dioxide Level 32 mmol/L (21-32) Anion Gap 4 (6-14) L Blood Urea Nitrogen 17 mg/dL (8-26) Creatinine 0.9 mg/dL (0.7-1.3) Estimated GFR (Cockcroft-Gault) 81.8 BUN/Creatinine Ratio 19 (6-20) Glucose Level 108 mg/dL (70-99) H Calcium Level 9.0 mg/dL (8.5-10.1) Total Bilirubin 0.2 mg/dL (0.2-1.0) Aspartate Amino Transferase (AST) 14 U/L (15-37) L Alanine Aminotransferase (ALT) 16 U/L (16-63) Alkaline Phosphatase 102 U/L (46-116) Total Protein 6.2 g/dL (6.4-8.2) L Albumin 2.8 g/dL (3.4-5.0) L Albumin/Globulin Ratio 0.8 (1.0-1.7) L Valproic Acid Level 33 mcg/mL (50-100) L Valproic Acid Last Dose Date 03/16/2021 Valproic Acid Last Dose Time 1800 Current Medications: Meds: Laboratory Tests Test 03/17/21 05:38 White Blood Count 7.8 x10^3/uL Red Blood Count 4.04 x10^6/uL Hemoglobin 10.0 g/dL Hematocrit 31.5 % Mean Corpuscular Volume 78 fL Mean Corpuscular Hemoglobin 25 pg Mean Corpuscular Hemoglobin Concent 32 g/dL Red Cell Distribution Width 34.0 % Platelet Count 331 x10^3/uL Neutrophils (%) (Auto) 70 % Lymphocytes (%) (Auto) 18 % Monocytes (%) (Auto) 9 % Eosinophils (%) (Auto) 2 % Basophils (%) (Auto) 1 % Neutrophils # (Auto) 5.5 x10^3uL Lymphocytes # (Auto) 1.4 x10^3/uL Monocytes # (Auto) 0.7 x10^3/uL Eosinophils # (Auto) 0.2 x10^3/uL Basophils # (Auto) 0.1 x10^3/uL Sodium Level 142 mmol/L Potassium Level 4.2 mmol/L Chloride Level 106 mmol/L Carbon Dioxide Level 32 mmol/L Anion Gap 4 Blood Urea Nitrogen 17 mg/dL Creatinine 0.9 mg/dL Estimated GFR (Cockcroft-Gault) 81.8 BUN/Creatinine Ratio 19 Glucose Level 108 mg/dL Calcium Level 9.0 mg/dL Total Bilirubin 0.2 mg/dL Aspartate Amino Transf (AST/SGOT) 14 U/L Alanine Aminotransferase (ALT/SGPT) 16 U/L Alkaline Phosphatase 102 U/L Total Protein 6.2 g/dL Albumin 2.8 g/dL Albumin/Globulin Ratio 0.8 Valproic Acid (Depakene) Level 33 mcg/mL Valproic Acid Last Dose Date 03/16/2021 Valproic Acid Last Dose Time 1800 Current Medications Medications (Trade) Dose Ordered Sig/Nela Route PRN Reason Start Time Stop Time Status Last Admin Dose Admin Acetaminophen (Tylenol) 650 mg PRN Q6HRS PRN PO MILD PAIN / TEMP > 100.3'F 03/09/21 14:30 03/17/21 10:56 DC 03/12/21 08:25 Multi-Ingredient Ointment (Analgesic [place]) 1 catracho PRN QID PRN TP MUSCLE PAIN 03/09/21 14:30 03/17/21 10:56 DC Al Hydroxide/Mg Hydroxide (Mylanta Plus Xs) 15 ml PRN AFTMEALHC PRN PO DYSPEPSIA 03/09/21 14:30 03/17/21 10:56 DC Magnesium Hydroxide (Milk Of Magnesia) 2,400 mg PRN QHS PRN PO CONSTIPATION 03/09/21 14:30 03/17/21 10:56 DC Nicotine (Nicoderm Cq 21mg Patch) 1 patch DAILY TD 03/10/21 09:00 03/17/21 10:56 DC 03/17/21 08:00 Calcium Carbonate/ Glycine (Oscal) 500 mg BID PO 03/09/21 21:00 03/17/21 10:56 DC 03/17/21 08:00 Ferrous Sulfate (Feosol) 325 mg DAILY PO 03/10/21 09:00 03/17/21 10:56 DC 03/17/21 08:00 Olanzapine (ZyPREXA ZYDIS) 5 mg PRN BID PRN PO ANXIETY / AGITATION 03/09/21 14:45 03/17/21 10:56 DC 03/12/21 08:25 Risperidone (RisperDAL) 1 mg QHS PO 03/09/21 21:00 03/10/21 16:19 DC 03/09/21 21:31 Senna/Docusate Sodium (Senna Plus) 2 tab DAILY PO 03/10/21 09:00 03/17/21 10:56 DC 03/17/21 08:01 Bacitracin (Bacitracin Topical Pkt) 1 pkt BID TP 03/09/21 21:00 03/12/21 20:20 DC 03/12/21 08:26 Citalopram Hydrobromide (CeleXA) 10 mg DAILY PO 03/10/21 09:00 03/10/21 16:19 DC 03/10/21 09:04 Folic Acid (Folic Acid) 1 mg DAILY PO 03/10/21 09:00 03/17/21 10:56 DC 03/17/21 08:00 Pantoprazole Sodium (Protonix) 40 mg DAILY06 PO 03/10/21 06:00 03/17/21 10:56 DC 03/17/21 06:09 Non-Formulary Medication (M-17/Nettle/ Pumpk/Saw Palmet (Prostate Therapy Softgel)) 1 each BID PO 03/09/21 21:00 03/09/21 15:03 DC Thiamine HCl (Vitamin B-1) 100 mg DAILY PO 03/10/21 09:00 03/17/21 10:56 DC 03/17/21 08:00 Citalopram Hydrobromide (CeleXA) 20 mg DAILY PO 03/11/21 09:00 03/13/21 14:30 DC 03/13/21 09:12 Risperidone (RisperDAL) 0.5 mg QHS PO 03/10/21 21:00 03/17/21 10:56 DC 03/16/21 20:59 Divalproex Sodium (Depakote Sprinkles) 125 mg 0900,1700 PO 03/11/21 09:00 03/14/21 17:01 DC 03/14/21 09:15 Bacitracin (Bacitracin Topical Pkt) 1 pkt PRN BID PRN TP RASH 03/12/21 20:30 03/17/21 10:56 DC Sertraline HCl (Zoloft) 50 mg DAILY PO 03/14/21 09:00 03/17/21 10:56 DC 03/17/21 08:00 Divalproex Sodium (Depakote Sprinkles) 250 mg 0900,1700 PO 03/14/21 17:00 03/17/21 10:56 DC 03/17/21 08:00 I have reviewed the current psychotropics carefully including drug interactions. Risk benefit ratio favors no change other than as noted in my dictated progress note. Diagnosis: Problems: (1) Impulse control disorder, unspecified (2) Anxiety disorder, unspecified (3) Dementia, vascular, with depression (4) Dementia, vascular, with delusions (5) Dementia in Alzheimer's disease with depression (6) Dementia in Alzheimer's disease with delusions (7) Dementia of the Alzheimer's type with early onset with behavioral disturbance (8) Major neurocognitive disorder DENZEL ZAYAS MD Mar 17, 2021 21:54
--- NOTE | 2021-03-17 22:24 | PDOC ---
Exam Note: Roni Note: This note is a late entry for 03/16/2021 covers elements not covered in my initial note. Subjective: The patient was reviewed on telehealth rounds in the morning of 03/16/2021 as an option during the COVID-19 pandemic period for a treatment team meeting with Carla Lawson, Nevin Mcintosh (social media designer), Ericka, activity therapy and Rowdy RN, discussed and reviewed the chart. We discussed the patients diagnoses, progress, current psychotropics, reviewed drug interactions, risk-benefit ratio of current psychotropics. The patient slept 5-3/4 hours previous night. Appetite is 100%. He has been calm somewhat withdrawn into his room at times. We will check valproic acid level in the morning. Possible transition to [facility] tomorrow. When I met with him on round after his supper he was able to tell me he had ground turkey in spinach for supper but does not enjoy spinach and enjoyed the sherbet inste ad. Review of Systems: Hard of hearing. No CV, , pulmonary, eye system symptoms on review. Mental Status Exam: The patient is oriented to himself. He seemed a little more lucid as I met with him today. Speech low in rate and rhythm, low in volume. Abstraction fair. Computation impaired. Language function intact. Mood and affect withdrawn. Laboratory Data: Reviewed. Impression: Major neurocognitive disorder, Alzheimer vascular with depression, delusions, behavioral disturbance. Impulse control disorder. Anxiety disorder unspecified. Plan: No change from initial note. Assessment: Vital Signs/I&O: Vital Signs Date Time Temp Pulse Resp B/P (MAP) Pulse Ox O2 Delivery O2 Flow Rate FiO2 03/17/21 06:02 98.3 71 20 128/65 (86) 96 03/16/21 16:17 Room Air I & O 03/16/21 03/16/21 03/17/21 14:59 22:59 06:59 Intake Total 480 ml 720 ml Balance 480 ml 720 ml Labs: Laboratory Tests Test 03/17/21 05:38 White Blood Count 7.8 x10^3/uL (4.0-11.0) Red Blood Count 4.04 x10^6/uL (4.30-5.70) L Hemoglobin 10.0 g/dL (13.0-17.5) L Hematocrit 31.5 % (39.0-53.0) L Mean Corpuscular Volume 78 fL (79-100) L Mean Corpuscular Hemoglobin 25 pg (25-35) Mean Corpuscular Hemoglobin Concent 32 g/dL (31-37) Red Cell Distribution Width 34.0 % (11.5-14.5) H Platelet Count 331 x10^3/uL (140-400) Neutrophils (%) (Auto) 70 % (31-73) Lymphocytes (%) (Auto) 18 % (24-48) L Monocytes (%) (Auto) 9 % (0-9) Eosinophils (%) (Auto) 2 % (0-3) Basophils (%) (Auto) 1 % (0-3) Neutrophils # (Auto) 5.5 x10^3uL (1.8-7.7) Lymphocytes # (Auto) 1.4 x10^3/uL (1.0-4.8) Monocytes # (Auto) 0.7 x10^3/uL (0.0-1.1) Eosinophils # (Auto) 0.2 x10^3/uL (0.0-0.7) Basophils # (Auto) 0.1 x10^3/uL (0.0-0.2) Sodium Level 142 mmol/L (136-145) Potassium Level 4.2 mmol/L (3.5-5.1) Chloride Level 106 mmol/L (98-107) Carbon Dioxide Level 32 mmol/L (21-32) Anion Gap 4 (6-14) L Blood Urea Nitrogen 17 mg/dL (8-26) Creatinine 0.9 mg/dL (0.7-1.3) Estimated GFR (Cockcroft-Gault) 81.8 BUN/Creatinine Ratio 19 (6-20) Glucose Level 108 mg/dL (70-99) H Calcium Level 9.0 mg/dL (8.5-10.1) Total Bilirubin 0.2 mg/dL (0.2-1.0) Aspartate Amino Transferase (AST) 14 U/L (15-37) L Alanine Aminotransferase (ALT) 16 U/L (16-63) Alkaline Phosphatase 102 U/L (46-116) Total Protein 6.2 g/dL (6.4-8.2) L Albumin 2.8 g/dL (3.4-5.0) L Albumin/Globulin Ratio 0.8 (1.0-1.7) L Valproic Acid Level 33 mcg/mL (50-100) L Valproic Acid Last Dose Date 03/16/2021 Valproic Acid Last Dose Time 1800 Current Medications: Meds: Laboratory Tests Test 03/17/21 05:38 White Blood Count 7.8 x10^3/uL Red Blood Count 4.04 x10^6/uL Hemoglobin 10.0 g/dL Hematocrit 31.5 % Mean Corpuscular Volume 78 fL Mean Corpuscular Hemoglobin 25 pg Mean Corpuscular Hemoglobin Concent 32 g/dL Red Cell Distribution Width 34.0 % Platelet Count 331 x10^3/uL Neutrophils (%) (Auto) 70 % Lymphocytes (%) (Auto) 18 % Monocytes (%) (Auto) 9 % Eosinophils (%) (Auto) 2 % Basophils (%) (Auto) 1 % Neutrophils # (Auto) 5.5 x10^3uL Lymphocytes # (Auto) 1.4 x10^3/uL Monocytes # (Auto) 0.7 x10^3/uL Eosinophils # (Auto) 0.2 x10^3/uL Basophils # (Auto) 0.1 x10^3/uL Sodium Level 142 mmol/L Potassium Level 4.2 mmol/L Chloride Level 106 mmol/L Carbon Dioxide Level 32 mmol/L Anion Gap 4 Blood Urea Nitrogen 17 mg/dL Creatinine 0.9 mg/dL Estimated GFR (Cockcroft-Gault) 81.8 BUN/Creatinine Ratio 19 Glucose Level 108 mg/dL Calcium Level 9.0 mg/dL Total Bilirubin 0.2 mg/dL Aspartate Amino Transf (AST/SGOT) 14 U/L Alanine Aminotransferase (ALT/SGPT) 16 U/L Alkaline Phosphatase 102 U/L Total Protein 6.2 g/dL Albumin 2.8 g/dL Albumin/Globulin Ratio 0.8 Valproic Acid (Depakene) Level 33 mcg/mL Valproic Acid Last Dose Date 03/16/2021 Valproic Acid Last Dose Time 1800 Current Medications Medications (Trade) Dose Ordered Sig/Nela Route PRN Reason Start Time Stop Time Status Last Admin Dose Admin Acetaminophen (Tylenol) 650 mg PRN Q6HRS PRN PO MILD PAIN / TEMP > 100.3'F 03/09/21 14:30 03/17/21 10:56 DC 03/12/21 08:25 Multi-Ingredient Ointment (Analgesic [place]) 1 catracho PRN QID PRN TP MUSCLE PAIN 03/09/21 14:30 03/17/21 10:56 DC Al Hydroxide/Mg Hydroxide (Mylanta Plus Xs) 15 ml PRN AFTMEALHC PRN PO DYSPEPSIA 03/09/21 14:30 03/17/21 10:56 DC Magnesium Hydroxide (Milk Of Magnesia) 2,400 mg PRN QHS PRN PO CONSTIPATION 03/09/21 14:30 03/17/21 10:56 DC Nicotine (Nicoderm Cq 21mg Patch) 1 patch DAILY TD 03/10/21 09:00 03/17/21 10:56 DC 03/17/21 08:00 Calcium Carbonate/ Glycine (Oscal) 500 mg BID PO 03/09/21 21:00 03/17/21 10:56 DC 03/17/21 08:00 Ferrous Sulfate (Feosol) 325 mg DAILY PO 03/10/21 09:00 03/17/21 10:56 DC 03/17/21 08:00 Olanzapine (ZyPREXA ZYDIS) 5 mg PRN BID PRN PO ANXIETY / AGITATION 03/09/21 14:45 03/17/21 10:56 DC 03/12/21 08:25 Risperidone (RisperDAL) 1 mg QHS PO 03/09/21 21:00 03/10/21 16:19 DC 03/09/21 21:31 Senna/Docusate Sodium (Senna Plus) 2 tab DAILY PO 03/10/21 09:00 03/17/21 10:56 DC 03/17/21 08:01 Bacitracin (Bacitracin Topical Pkt) 1 pkt BID TP 03/09/21 21:00 03/12/21 20:20 DC 03/12/21 08:26 Citalopram Hydrobromide (CeleXA) 10 mg DAILY PO 03/10/21 09:00 03/10/21 16:19 DC 03/10/21 09:04 Folic Acid (Folic Acid) 1 mg DAILY PO 03/10/21 09:00 03/17/21 10:56 DC 03/17/21 08:00 Pantoprazole Sodium (Protonix) 40 mg DAILY06 PO 03/10/21 06:00 03/17/21 10:56 DC 03/17/21 06:09 Non-Formulary Medication (M-17/Nettle/ Pumpk/Saw [place]met (Prostate Therapy Softgel)) 1 each BID PO 03/09/21 21:00 03/09/21 15:03 DC Thiamine HCl (Vitamin B-1) 100 mg DAILY PO 03/10/21 09:00 03/17/21 10:56 DC 03/17/21 08:00 Citalopram Hydrobromide (CeleXA) 20 mg DAILY PO 03/11/21 09:00 03/13/21 14:30 DC 03/13/21 09:12 Risperidone (RisperDAL) 0.5 mg QHS PO 03/10/21 21:00 03/17/21 10:56 DC 03/16/21 20:59 Divalproex Sodium (Depakote Sprinkles) 125 mg 0900,1700 PO 03/11/21 09:00 03/14/21 17:01 DC 03/14/21 09:15 Bacitracin (Bacitracin Topical Pkt) 1 pkt PRN BID PRN TP RASH 03/12/21 20:30 03/17/21 10:56 DC Sertraline HCl (Zoloft) 50 mg DAILY PO 03/14/21 09:00 03/17/21 10:56 DC 03/17/21 08:00 Divalproex Sodium (Depakote Sprinkles) 250 mg 0900,1700 PO 03/14/21 17:00 03/17/21 10:56 DC 03/17/21 08:00 I have reviewed the current psychotropics carefully including drug interactions. Risk benefit ratio favors no change other than as noted in my dictated progress note. Diagnosis: Problems: (1) Impulse control disorder, unspecified (2) Anxiety disorder, unspecified (3) Dementia, vascular, with depression (4) Dementia, vascular, with delusions (5) Dementia in Alzheimer's disease with depression (6) Dementia in Alzheimer's disease with delusions (7) Dementia of the Alzheimer's type with early onset with behavioral disturbance (8) Major neurocognitive disorder DENZEL ZAYAS MD Mar 17, 2021 22:24
--- NOTE | 2021-03-17 22:25 | PDOC ---
Exam Note: Roni Note: Please also refer to the separate dictated note~for this date of service dictated separately.~Patient seen individually. Discussed the patient with Nursing staff reviewed the chart.~Reviewed interim history and current functioning. Reviewed vital signs,~Labs/ Radiology~and current medications noted below. Continue current treatment with the changes noted in the dictated addendum note Assessment: Vital Signs/I&O: Vital Signs Date Time Temp Pulse Resp B/P (MAP) Pulse Ox O2 Delivery O2 Flow Rate FiO2 03/17/21 06:02 98.3 71 20 128/65 (86) 96 03/16/21 16:17 Room Air I & O 03/16/21 03/16/21 03/17/21 14:59 22:59 06:59 Intake Total 480 ml 720 ml Balance 480 ml 720 ml Labs: Laboratory Tests Test 03/17/21 05:38 White Blood Count 7.8 x10^3/uL (4.0-11.0) Red Blood Count 4.04 x10^6/uL (4.30-5.70) L Hemoglobin 10.0 g/dL (13.0-17.5) L Hematocrit 31.5 % (39.0-53.0) L Mean Corpuscular Volume 78 fL (79-100) L Mean Corpuscular Hemoglobin 25 pg (25-35) Mean Corpuscular Hemoglobin Concent 32 g/dL (31-37) Red Cell Distribution Width 34.0 % (11.5-14.5) H Platelet Count 331 x10^3/uL (140-400) Neutrophils (%) (Auto) 70 % (31-73) Lymphocytes (%) (Auto) 18 % (24-48) L Monocytes (%) (Auto) 9 % (0-9) Eosinophils (%) (Auto) 2 % (0-3) Basophils (%) (Auto) 1 % (0-3) Neutrophils # (Auto) 5.5 x10^3uL (1.8-7.7) Lymphocytes # (Auto) 1.4 x10^3/uL (1.0-4.8) Monocytes # (Auto) 0.7 x10^3/uL (0.0-1.1) Eosinophils # (Auto) 0.2 x10^3/uL (0.0-0.7) Basophils # (Auto) 0.1 x10^3/uL (0.0-0.2) Sodium Level 142 mmol/L (136-145) Potassium Level 4.2 mmol/L (3.5-5.1) Chloride Level 106 mmol/L (98-107) Carbon Dioxide Level 32 mmol/L (21-32) Anion Gap 4 (6-14) L Blood Urea Nitrogen 17 mg/dL (8-26) Creatinine 0.9 mg/dL (0.7-1.3) Estimated GFR (Cockcroft-Gault) 81.8 BUN/Creatinine Ratio 19 (6-20) Glucose Level 108 mg/dL (70-99) H Calcium Level 9.0 mg/dL (8.5-10.1) Total Bilirubin 0.2 mg/dL (0.2-1.0) Aspartate Amino Transferase (AST) 14 U/L (15-37) L Alanine Aminotransferase (ALT) 16 U/L (16-63) Alkaline Phosphatase 102 U/L (46-116) Total Protein 6.2 g/dL (6.4-8.2) L Albumin 2.8 g/dL (3.4-5.0) L Albumin/Globulin Ratio 0.8 (1.0-1.7) L Valproic Acid Level 33 mcg/mL (50-100) L Valproic Acid Last Dose Date 03/16/2021 Valproic Acid Last Dose Time 1800 Current Medications: Meds: Laboratory Tests Test 03/17/21 05:38 White Blood Count 7.8 x10^3/uL Red Blood Count 4.04 x10^6/uL Hemoglobin 10.0 g/dL Hematocrit 31.5 % Mean Corpuscular Volume 78 fL Mean Corpuscular Hemoglobin 25 pg Mean Corpuscular Hemoglobin Concent 32 g/dL Red Cell Distribution Width 34.0 % Platelet Count 331 x10^3/uL Neutrophils (%) (Auto) 70 % Lymphocytes (%) (Auto) 18 % Monocytes (%) (Auto) 9 % Eosinophils (%) (Auto) 2 % Basophils (%) (Auto) 1 % Neutrophils # (Auto) 5.5 x10^3uL Lymphocytes # (Auto) 1.4 x10^3/uL Monocytes # (Auto) 0.7 x10^3/uL Eosinophils # (Auto) 0.2 x10^3/uL Basophils # (Auto) 0.1 x10^3/uL Sodium Level 142 mmol/L Potassium Level 4.2 mmol/L Chloride Level 106 mmol/L Carbon Dioxide Level 32 mmol/L Anion Gap 4 Blood Urea Nitrogen 17 mg/dL Creatinine 0.9 mg/dL Estimated GFR (Cockcroft-Gault) 81.8 BUN/Creatinine Ratio 19 Glucose Level 108 mg/dL Calcium Level 9.0 mg/dL Total Bilirubin 0.2 mg/dL Aspartate Amino Transf (AST/SGOT) 14 U/L Alanine Aminotransferase (ALT/SGPT) 16 U/L Alkaline Phosphatase 102 U/L Total Protein 6.2 g/dL Albumin 2.8 g/dL Albumin/Globulin Ratio 0.8 Valproic Acid (Depakene) Level 33 mcg/mL Valproic Acid Last Dose Date 03/16/2021 Valproic Acid Last Dose Time 1800 Current Medications Medications (Trade) Dose Ordered Sig/Nela Route PRN Reason Start Time Stop Time Status Last Admin Dose Admin Acetaminophen (Tylenol) 650 mg PRN Q6HRS PRN PO MILD PAIN / TEMP > 100.3'F 03/09/21 14:30 03/17/21 10:56 DC 03/12/21 08:25 Multi-Ingredient Ointment (Analgesic Echola) 1 catracho PRN QID PRN TP MUSCLE PAIN 03/09/21 14:30 03/17/21 10:56 DC Al Hydroxide/Mg Hydroxide (Mylanta Plus Xs) 15 ml PRN AFTMEALHC PRN PO DYSPEPSIA 03/09/21 14:30 03/17/21 10:56 DC Magnesium Hydroxide (Milk Of Magnesia) 2,400 mg PRN QHS PRN PO CONSTIPATION 03/09/21 14:30 03/17/21 10:56 DC Nicotine (Nicoderm Cq 21mg Patch) 1 patch DAILY TD 03/10/21 09:00 03/17/21 10:56 DC 03/17/21 08:00 Calcium Carbonate/ Glycine (Oscal) 500 mg BID PO 03/09/21 21:00 03/17/21 10:56 DC 03/17/21 08:00 Ferrous Sulfate (Feosol) 325 mg DAILY PO 03/10/21 09:00 03/17/21 10:56 DC 03/17/21 08:00 Olanzapine (ZyPREXA ZYDIS) 5 mg PRN BID PRN PO ANXIETY / AGITATION 03/09/21 14:45 03/17/21 10:56 DC 03/12/21 08:25 Risperidone (RisperDAL) 1 mg QHS PO 03/09/21 21:00 03/10/21 16:19 DC 03/09/21 21:31 Senna/Docusate Sodium (Senna Plus) 2 tab DAILY PO 03/10/21 09:00 03/17/21 10:56 DC 03/17/21 08:01 Bacitracin (Bacitracin Topical Pkt) 1 pkt BID TP 03/09/21 21:00 03/12/21 20:20 DC 03/12/21 08:26 Citalopram Hydrobromide (CeleXA) 10 mg DAILY PO 03/10/21 09:00 03/10/21 16:19 DC 03/10/21 09:04 Folic Acid (Folic Acid) 1 mg DAILY PO 03/10/21 09:00 03/17/21 10:56 DC 03/17/21 08:00 Pantoprazole Sodium (Protonix) 40 mg DAILY06 PO 03/10/21 06:00 03/17/21 10:56 DC 03/17/21 06:09 Non-Formulary Medication (M-17/Nettle/ Pumpk/Saw Palmet (Prostate Therapy Softgel)) 1 each BID PO 03/09/21 21:00 03/09/21 15:03 DC Thiamine HCl (Vitamin B-1) 100 mg DAILY PO 03/10/21 09:00 03/17/21 10:56 DC 03/17/21 08:00 Citalopram Hydrobromide (CeleXA) 20 mg DAILY PO 03/11/21 09:00 03/13/21 14:30 DC 03/13/21 09:12 Risperidone (RisperDAL) 0.5 mg QHS PO 03/10/21 21:00 03/17/21 10:56 DC 03/16/21 20:59 Divalproex Sodium (Depakote Sprinkles) 125 mg 0900,1700 PO 03/11/21 09:00 03/14/21 17:01 DC 03/14/21 09:15 Bacitracin (Bacitracin Topical Pkt) 1 pkt PRN BID PRN TP RASH 03/12/21 20:30 03/17/21 10:56 DC Sertraline HCl (Zoloft) 50 mg DAILY PO 03/14/21 09:00 03/17/21 10:56 DC 03/17/21 08:00 Divalproex Sodium (Depakote Sprinkles) 250 mg 0900,1700 PO 03/14/21 17:00 03/17/21 10:56 DC 03/17/21 08:00 I have reviewed the current psychotropics carefully including drug interactions. Risk benefit ratio favors no change other than as noted in my dictated progress note. 

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
== END 2021-03-17 10:40 | DRG 885 ==
LOC: GEROPSY 13:10
PROVIDERS: ADMIT Psychiatry & Neurology Psychiatry; ATTEND Psychiatry & Neurology Psychiatry
DX: F32.3 Major depressive disorder, single episode, severe with psychotic features (principal); F05 Delirium due to known physiological condition; F02.81 Dementia in other diseases classified elsewhere, unspecified severity, with behavioral disturbance; F01.51 Vascular dementia, unspecified severity, with behavioral disturbance; F10.26 Alcohol dependence with alcohol-induced persisting amnestic disorder; F17.200 Nicotine dependence, unspecified, uncomplicated; F41.9 Anxiety disorder, unspecified; F63.9 Impulse disorder, unspecified; G30.9 Alzheimer's disease, unspecified; G47.00 Insomnia, unspecified; Z79.899 Other long term (current) drug therapy
CPT/HCPCS: 36415; 80053; 80061; 80164; 81001; 82140; 82306; 82607; 83036; 83540; 83550; 83735; 84436; 84443; 84480; 85007; 85025; 85379; 86592; 93005; 97535